=== PATIENT | female | born 1935 | race Caucasian/White ===

== ENCOUNTER → 2017-06-08 | Outpatient (CLI) | payer OTHER ==
[~2017-06-08] MED LIST: CHOL100010 PO; MULT-513 PO; NAPR220T PO; OXYB10TA PO; OXYB5TAB21 PO
--- NOTE | 2017-06-11 08:13 | DIAGNOSTIC IMAGING REPORT ---
L-SPINE MIN 4 VIEWS ROUTINE CLINICAL HISTORY: ARTHRITIS//LOW BACK PAIN COMPARISON STUDY: No previous studies for comparison. FINDINGS: The bones are osteopenic. There is a thoracolumbar scoliosis. There is no pathologic bowel dilatation. There is scattered stool throughout the colon. There are multilevel degenerative changes present. No acute fractures are visualized. There is a grade 1 spondylolisthesis of L3 on L4. IMPRESSION: 1. Scoliosis 2. Osteopenia 3. Multilevel degenerative change 4. No acute fractures Electronically signed by: Igor Cm M.D. 06/11/2017 8:12 AM Dictated Date/Time: 06/11/2017 8:10 AM
== END | disposition home or self-care (01) ==
LOC: C.RADPV 15:09
PROVIDERS: ATTEND Neuromusculoskeletal Medicine & OMM
DX: M19.90 Unspecified osteoarthritis, unspecified site (principal); M54.5 Low back pain; M41.9 Scoliosis, unspecified

== ENCOUNTER → 2017-07-05 | Outpatient (CLI) | payer OTHER | END | disposition home or self-care (01) | LOC: C.MAMM 11:00 | PROVIDERS: ATTEND Neuromusculoskeletal Medicine & OMM | DX: M85.832 Other specified disorders of bone density and structure, left forearm (principal); M85.851 Other specified disorders of bone density and structure, right thigh; M85.852 Other specified disorders of bone density and structure, left thigh ==

== ENCOUNTER → 2017-07-26 | Outpatient (CLI) | payer OTHER ==
[2017-07-26 13:01] LABS: ALT/SGPT 16 U/L (12-78); AST/SGOT 14 U/L (15-37); BLOOD UREA NITROGEN 13 mg/dl (7-18); BUN/CREATININE RATIO 21.7 (10-20); CALCIUM 8.2 mg/dl (8.5-10.1); CARBON DIOXIDE 27 mmol/L (21-32); CHLORIDE 106 mmol/L (98-107); CREATININE 0.62 mg/dl (0.60-1.20); GLUCOSE 84 mg/dl (70-99); POTASSIUM 3.6 mmol/L (3.5-5.1); SODIUM 141 mmol/L (136-145)
[2017-07-26 13:09] LABS: ALB/GLOB RATIO 1.1 (0.9-2); ALKALINE PHOSPHATASE 67 U/L (45-117)
== END | disposition home or self-care (01) ==
LOC: C.LAB1850 11:09
PROVIDERS: ATTEND Psychiatry & Neurology Psychiatry
DX: F31.81 Bipolar II disorder (principal)

== ENCOUNTER → 2017-11-06 | Day surgery (SDC) | payer OTHER ==
[2017-09-26 08:07] VITALS: Ht 165.1 cm; Wt 75.9 kg
[~2017-11-06] VITALS: Ht 165.1 cm; Wt 75.9 kg
[~2017-11-06] MED LIST changes: +500ML BSS 0.3ML EPI 1:1000PF IRRIG ONE; +ACETAMINOPHEN 325 MG TAB PO PRN; +AMVISC PLUS 0.8ML SYRINGE INT OCU ONE; +ATROPINE SULFATE 0.1 MG/ML 5ML SYR IV PRN; +BSS FLUSH ONE; -CHOL100010 PO; +DIVA1CAP PO; +EpHEDrine SULFATE INJ 50 MG/ML AMP IV PRN; +EpINEphrine INJ 1MG/ML AMP 1 MG/ML AMP ONE; +LACTATED RINGER'S 1000ML 500 ML IV SCH; +LIDOCAINE 3.5% OPH GEL PER APPLICATION CHARGE ONE; +LIDOCAINE HCL 1% MPF 2 ML VIAL ONE; +MAGNESIUM PO; +MIDAZOLAM HCL 1 MG/ML 2ML VIAL ONE; -NAPR220T PO; +OCUCOAT 1 ML SOLN IO ONE; -OXYB10TA PO; +PARO20TA3 PO; +POVIDONE-IODINE OP SOLN 30 ML BTL ONE; +PROPARACAINE 0.5% OP SOLN PER DROP CHARGE OPL SCH; +TOBRAMYCIN/DEXAMETHASONE OPH OINT PER APPLN CHARGE ONE; +VALE500C2 PO; +VITAMIN B12 PO; +VITAMIN D3 PO
[2017-11-06] MEDS: PHENYLEPHRINE HCL 2.5% OP SOLN PER DROP CHARGE OPL SCH ×2 (11:25→11:31)
[2017-11-06] MEDS: TROPICAMIDE 1% OP SOLN PER DROP CHARGE OPL SCH ×2 (11:26→11:33)
[2017-11-06] MEDS: CYCLOPENTOLATE HCL 1% OP SOLN PER DROP CHARGE OPL SCH ×2 (11:27→11:34)
[2017-11-06] MEDS: KETOROLAC 0.5% OP SOLN PER DROP CHARGE OPL SCH ×2 (11:28→11:36)
[2017-11-06] MEDS: GATIFLOXACIN OP SOLN PER DROP CHARGE OPL SCH ×2 (11:29→11:43)
--- NOTE | 2017-11-06 12:20 | History & Physical Bridge - SC ---
H&P Re-Evaluation Bridge Note: I have examined the patient, reviewed the History & Physical and in the interval since the performance of the History & Physical I have noted the following changes of clinical significance: No changes noted
--- NOTE | 2017-11-06 12:50 | [facility] Operative Report ---
Operative Report Date of Service Nov 06, 2017. Operative Report 1. PREOPERATIVE DIAGNOSIS: Cataract of the right eye. 2. POSTOPERATIVE DIAGNOSIS: Same. 3. PROCEDURE: Phacoemulsification with intraocular lens implantation of the right eye. SURGEON: Dr. Yomi Sen. ANESTHESIA: Topical Lidocaine gel, 1% Non- Preserved intracameral Lidocaine, and monitored intravenous sedation. INDICATIONS FOR THE PROCEDURE: The patient is a 82 - year-old female with a history of cataract of the right eye causing significant visual impairment. The details of the proposed procedure were explained to the patient who asked appropriate questions and following discussion of all risks, benefits and alternatives agreed to have the procedure done. 4. OPERATION AND FINDINGS: DESCRIPTION OF PROCEDURE: After informed consent was obtained, the patient was brought to the Operating Room at the [facility]. The patient was placed in a supine position and then the right eye was prepped and draped in the usual sterile fashion for intraocular surgery. A drop of topical Lidocaine gel was placed in the operative eye. A wire lid speculum was then placed in the fornices. A corneal paracentesis was then created temporally. The Non-Preserved Lidocaine was then instilled into the anterior chamber. The anterior chamber was then pressurized with viscoelastic. A 2.0 mm clear corneal incision was then created temporally. A cystotome was inserted into the anterior chamber and used to create a tear in the anterior lens capsule. This capsular tear was then used to create a small flap and the flap was dragged in a counterclockwise direction in order to create a continuous curvilinear capsulorrhexis. Hydrodissection was accomplished with balanced salt solution. Phacoemulsification of the lens nucleus was then performed in a standard [id number] technique. The phaco time was 26 seconds with an average power of 15 %. The remaining cortical material was removed using irrigation aspiration. The capsular bag was then filled with viscoelastic. A [employer]ch [employer] Lomb MI60L +22.0 diopters lens was then loaded into the injector and injected into the capsular bag. The remaining viscoelastic was removed with the irrigation aspiration handpiece. The wound was hydrated and then checked and found to be watertight. The intraocular pressure was checked and found to be adequate. The wire lid speculum was removed and the patient's face was cleaned and dried. TobraDex ointment was placed in the inferior fornix. The patient was discharged to the Recovery Room having tolerated the procedure well. There were no complications. The patient will be seen tomorrow in the office for follow-up. I attest to the content of the Intraoperative Record and any orders documented therein. Any exceptions are noted below.
--- NOTE | 2017-11-06 12:51 | Discharge Instructions-SurgCtr ---
Discharge Instructions Date of Service Nov 06, 2017. Visit Reason for Visit: Cataract Right Eye Discharge Discharge Diagnosis / Problem: cataract Discharge Goals Goal(s): Improve function Activity Recommendations Activity Limitations: per Instructions/Follow-up section Anesthesia . Post Anesthesia Instructions: If you have had General Anesthesia or IV Sedation: * Do not drive today. * Resume driving when surgeon permits. * Do not make important decisions or sign legal documents today. * Call surgeon for: 1. Temperature elevations greater than 101 degrees F. 2. Uncontrollable pain. 3. Excessive bleeding. 4. Persistent nausea and vomiting. 5. Medication intolerance (nausea, vomiting or rash). * For nausea and vomiting use only clear liquids such as: tea, soda, bouillon until nausea subsides, then gradually increase diet as tolerated. * If you have any concerns or questions, call your surgeon's office. If physician is unavailable and it is an emergency, call 911 or go to the nearest emergency room. . Diet Recommendations Home Diet: resume previous diet Procedures Procedures Performed: Right Cataract Phacoemulsification With Intraocular Lens Implant Pending Studies Studies pending at discharge: no Medical Emergencies . Who to Call and When: Medical Emergencies: If at any time you feel your situation is an emergency, please call 911 immediately. . Non-Emergent Contact Non-Emergency issues call your: [employer] . . "Provider Documentation" section prepared by Yomi Sen. .
[2017-11-06 13:22] VITALS: BP 141/88; PULSE 75; O2SAT 95
--- NOTE | 2017-11-06 13:22 | Anesthesia Progress Nt - [facility] ---
Anesthesia Post Op Note Date & Time Nov 06, 2017 at 13:22 Vital Signs Pain Intensity: 0 Vital Signs Past 12 Hours Date Time Temp Pulse Resp B/P (MAP) Pulse Ox O2 Delivery O2 Flow Rate FiO2 11/06/17 12:51 36.2 65 16 136/88 (104) 94 Room Air 11/06/17 11:16 36.6 69 16 141/87 (105) 96 Room Air Notes Mental Status: alert / awake / arousable, participated in evaluation Pt Amnestic to Procedure: Yes Nausea / Vomiting: adequately controlled Pain: adequately controlled Airway Patency, RR, SpO2: stable & adequate BP & HR: stable & adequate Hydration State: stable & adequate Anesthetic Complications: no major complications apparent
== END | disposition home or self-care (01) ==
LOC: X.SURG 10:44
PROVIDERS: ATTEND Ophthalmology
DX: H26.9 Unspecified cataract (principal); I10 Essential (primary) hypertension; Z85.828 Personal history of other malignant neoplasm of skin; Z88.2 Allergy status to sulfonamides; Z90.89 Acquired absence of other organs

== ENCOUNTER 2017-11-17 03:30 | Emergency (ER) | payer OTHER ==
[~2017-11-17] VITALS: Ht 165.1 cm; Wt 73.0 kg
[~2017-11-17 03:30] MED LIST changes: -500ML BSS 0.3ML EPI 1:1000PF IRRIG ONE; -ACETAMINOPHEN 325 MG TAB PO PRN; -AMVISC PLUS 0.8ML SYRINGE INT OCU ONE; -ATROPINE SULFATE 0.1 MG/ML 5ML SYR IV PRN; -BSS FLUSH ONE; -EpHEDrine SULFATE INJ 50 MG/ML AMP IV PRN; -EpINEphrine INJ 1MG/ML AMP 1 MG/ML AMP ONE; -LACTATED RINGER'S 1000ML 500 ML IV SCH; -LIDOCAINE 3.5% OPH GEL PER APPLICATION CHARGE ONE; -LIDOCAINE HCL 1% MPF 2 ML VIAL ONE; -MIDAZOLAM HCL 1 MG/ML 2ML VIAL ONE; -OCUCOAT 1 ML SOLN IO ONE; -PARO20TA3 PO; -POVIDONE-IODINE OP SOLN 30 ML BTL ONE; -PROPARACAINE 0.5% OP SOLN PER DROP CHARGE OPL SCH; -TOBRAMYCIN/DEXAMETHASONE OPH OINT PER APPLN CHARGE ONE
[2017-11-17 03:37] VITALS: Ht 165.1 cm; Wt 73.0 kg
[2017-11-17] MEDS ORDERED: LORAZEPAM 2 MG/ML 1 ML VIAL IV STA (04:24)
--- NOTE | 2017-11-17 06:57 | DIAGNOSTIC IMAGING REPORT ---
MAXILLOFACIAL CT WITHOUT CONTRAST CLINICAL HISTORY: specifically looking at right TMJ - dislocation COMPARISON STUDY: None. TECHNIQUE: A maxillofacial CT was performed without IV contrast. Coronal and sagittal reformats were viewed. A dose lowering technique was utilized adhering to the principles of ALARA. FINDINGS: Alignment of the left temporomandibular joint is anatomic. There is anterior dislocation of the right temporomandibular joint with the right mandibular condyle located anterior to the right glenoid fossa. No associated fracture is present. There is an 8 mm subchondral cyst within the right mandibular condyle with chronic deformity of the mandibular condyle. No facial fracture is identified. Orbits are unremarkable. There is mild mucosal thickening of the sinuses. Mastoid air cells are clear. IMPRESSION: 1. Right temporomandibular joint dislocation with right mandibular condyle located anterior to the glenoid fossa. Subchondral cystic change and chronic deformity of the right mandibular condyle suggests arthritis. No associated fracture. 2. Anatomic alignment of left temporomandibular joint. Electronically signed by: Bismark Quinn M.D. 11/17/2017 6:56 AM Dictated Date/Time: 11/17/2017 6:50 AM
[2017-11-17 07:45] VITALS: BP 145/93; PULSE 74; O2SAT 94
--- NOTE | 2017-11-17 09:08 | EMERGENCY ROOM VISIT NOTE ---
History Report prepared by Brian: Alisson Abdalla Under the Supervision of: Dr. Renetta Rubio D.O. First contact with patient: 04:09 Chief Complaint: FACIAL PAIN/INJURY Stated Complaint: JAW OUT OF PLACE CAN'T SPEAK History of Present Illness The patient is an 82 year old female who presents to the Emergency Room with complaints of an episode of facial pain starting prior to arrival. The patient states that she woke up out of sleep with both sides of her jaw out of place. The patient's son states that he woke her up and he thought at first she was having a stroke. She denies this ever happening before. She notes that she has TMJ. She states that the last time she ate was 8 hours ago. She currently rates her pain as a 10/10 in severity. She believes that she was able to get the left side back in place but remains dislocated on the right. She has no history of previous TMJ dislocation. Source of History: patient, family Onset: piror to arrival Position: other (face) Symptom Intensity: 10/10 Quality: other (dislocated) Timing: other (episode) Review of Systems See HPI for pertinent positives & negatives. A total of 10 systems reviewed and were otherwise negative. Past Medical & Surgical Medical Problems: (1) Acid reflux disease (2) No Known Active Medical Problems Family History Cancer Diabetes mellitus Hypertension Social History Smoking Status: Never Smoker Alcohol Use: none Marital Status: Housing Status: lives with family Occupation Status: employed Current/Historical Medications Scheduled Divalproex Sodium (Divalproex Sodium), 1 DOSE PO BID Multivitamins/Minerals (Mvi With Minerals), 1 TAB PO QAM Valerian (Valeriana Officinali (Valerian Root), 1 CAP PO HS [Magnesium], 1 TAB PO QAM [Vitamin B12], 1 TAB PO QAM [Vitamin D3], 1 TAB PO QAM Scheduled PRN Oxybutynin Chloride (Ditropan Xl), 1 TAB PO TID PRN for PRN Allergies Coded Allergies: Sulfa Antibiotics (Verified Allergy, Unknown, told so many years ago, ? remember, 11/14/17) Physical Exam Vital Signs Date Time Temp Pulse Resp B/P (MAP) Pulse Ox O2 Delivery O2 Flow Rate FiO2 11/17/17 07:45 74 18 145/93 94 Room Air 11/17/17 06:25 78 20 164/97 98 Room Air 11/17/17 05:06 66 20 155/88 96 Room Air 11/17/17 03:37 81 26 197/93 98 Room Air Physical Exam HEENT: Right TMJ is dislocated. Medical Decision & Procedures ER Provider Diagnostic Interpretation: Radiology results as stated below per my review and the radiologist's interpretation: MAXILLOFACIAL CT WITHOUT CONTRAST CLINICAL HISTORY: specifically looking at right TMJ - dislocation COMPARISON STUDY: None. TECHNIQUE: A maxillofacial CT was performed without IV contrast. Coronal and sagittal reformats were viewed. A dose lowering technique was utilized adhering to the principles of ALARA. FINDINGS: Alignment of the left temporomandibular joint is anatomic. There is anterior dislocation of the right temporomandibular joint with the right mandibular condyle located anterior to the right glenoid fossa. No associated fracture is present. There is an 8 mm subchondral cyst within the right mandibular condyle with chronic deformity of the mandibular condyle. No facial fracture is identified. Orbits are unremarkable. There is mild mucosal thickening of the sinuses. Mastoid air cells are clear. IMPRESSION: 1. Right temporomandibular joint dislocation with right mandibular condyle located anterior to the glenoid fossa. Subchondral cystic change and chronic deformity of the right mandibular condyle suggests arthritis. No associated fracture. 2. Anatomic alignment of left temporomandibular joint. Electronically signed by: Bismark Quinn M.D. 11/17/2017 6:56 AM Dictated Date/Time: 11/17/2017 6:50 AM Medications Administered Medications (Trade) Dose Ordered Sig/Gordon Route Start Time Stop Time Status Last Admin Dose Admin Lorazepam (Ativan Inj) 1 mg NOW STAT IV 11/17/17 04:24 11/17/17 04:25 DC 11/17/17 04:35 1 MG Procedure TMJ Dislocation Reduction Indication: Right TMJ dislocation Verbal consent obtained. A time out was taken. . The right TMJ dislocation was reduced by placing the patient in the seated position and applying gentle downward inline traction on the right mandible, with posterior traction. After multiple attempts, This resulted in a reduction without complication. The patient had significant pain relief and tolerated the procedure well. 0424: Ordered Ativan Inj 1 mg IV. ED Course 0409: The patient was evaluated in room B9. A complete history and physical exam was performed. I attempted reduction of the right TMJ dislocation but was unsuccessful. It seemed that the head of the mandible would get hung up on the condyle. 0424: Ordered Ativan Inj 1 mg IV. 0508: The patient is slightly improved from when I first saw her. I attempted reduction again with downward traction on the mandible and posterior Rusher on the right side but again was unsuccessful. The mandible would not stay in a reduced position. 0532: The patient will go for CT scan of the TMJ. 0707: Upon reevaluation I reviewed the results of the CT scan with the patient and her son. I attempted multiple different techniques to reduce the TMJ and finally was successful. I was able to get her jaw back into place. She feels much better. I discussed instructions for her to follow over the next 3 days. She verbalized agreement of the treatment plan. The patient was discharged home. Medical Decision The patient is an 82 year old female who presents to the Emergency Room with complaints of an episode of facial pain starting prior to arrival. Differential diagnoses include mandibular fracture, TMJ dislocation. The patient had a bilateral TMJ dislocation. She was able to reduce the left TMJ on her own and I was able to reduce the right. She is much more comfortable with this time. She was encouraged to take a liquid or very soft diet over the next 3 days. She should return here to the emergency department for any further dislocation. Medication Reconcilliation Current Medication List: was personally reviewed by me Blood Pressure Screening Patient's blood pressure: Elevated blood pressure Blood pressure disposition: Elevated BP felt to be situational Impression Primary Impression: TMJ dislocation Scribe Attestation The scribe's documentation has been prepared under my direction and personally reviewed by me in its entirety. I confirm that the note above accurately reflects all work, treatment, procedures, and medical decision making performed by me. Departure Information Dispostion Home / Self-Care Referrals Vincenzo Barba D.O. (PCP) Forms HOME CARE DOCUMENTATION FORM, IMPORTANT VISIT INFORMATION Patient Instructions My [facility] Additional Instructions Rest. Soft or liquid diet for next 3 days tylenol for pain. Return to the ED if it dislocates again. Problem Qualifiers Primary Impression: TMJ dislocation Encounter type: initial encounter Qualified Codes: S03.00XA - Dislocation of jaw, unspecified side, initial encounter
== END 2017-11-17 08:14 | disposition home or self-care (01) ==
LOC: C.EDB 03:31
DX: S03.00XA Dislocation of jaw, unspecified side, initial encounter (principal); X58.XXXA Exposure to other specified factors, initial encounter; K21.9 Gastro-esophageal reflux disease without esophagitis; Z80.9 Family history of malignant neoplasm, unspecified; Z83.3 Family history of diabetes mellitus; Z82.49 Family history of ischemic heart disease and other diseases of the circulatory system; Z79.899 Other long term (current) drug therapy

== ENCOUNTER 2017-11-22 14:42 | Emergency (ER) | payer OTHER ==
[~2017-11-22] VITALS: Ht 165.1 cm; Wt 70.8 kg
[2017-11-22 14:49] VITALS: TEMP 36.8; Ht 165.1 cm; Wt 70.8 kg
--- NOTE | 2017-11-22 15:38 | EMERGENCY ROOM VISIT NOTE ---
History Report prepared by Saryibdane: Sumanth Wong Under the Supervision of: Dr. Wellington Burt D.O. First contact with patient: 15:19 Chief Complaint: NECK PAIN Stated Complaint: NECK PAIN History of Present Illness The patient is a 82 year old female who presents to the Emergency Room with complaints of resolved right sided neck pain that occurred today. She reports that she has had a history of neck pain for a couple of years ago that is typically resolved when she holds her neck and massages the area. The patient states that the pain returns every 3-4 weeks. She states that she has not been referred to a specialist due to her pain. The patient states that her pain returned today, but she states that she was not able to relieve her pain with massaging. She denies chest pain, shortness of breath, rashes, leg pain or swelling, nausea, vomiting, new medications. The patient states that she was recently in the ED five days ago due to TMJ. Source of History: patient Onset: today Position: neck (right) Timing: resolved Modifying Factors (Relieving): other (massaging) Associated Symptoms: No chest pain, No SOB, No nausea, No vomiting, No rash Review of Systems See HPI for pertinent positives & negatives. A total of 10 systems reviewed and were otherwise negative. Past Medical & Surgical Medical Problems: (1) Acid reflux disease (2) No Known Active Medical Problems Family History Cancer Diabetes mellitus Hypertension Social History Smoking Status: Never Smoker Alcohol Use: none Marital Status: Housing Status: lives with family Occupation Status: employed Current/Historical Medications Scheduled Calcium/Vitamin D (Os-Chance 500 Plus D), 1 TAB PO DAILY Divalproex Sodium (Divalproex Sodium), 125 MG PO BID Multivitamins/Minerals (Mvi With Minerals), 1 TAB PO QAM Valerian (Valeriana Officinali (Valerian Root), 500 MG PO HS [Magnesium], 1 TAB PO QAM [Vitamin B12], 1 TAB PO QAM [Vitamin D3], 1 TAB PO QAM Scheduled PRN Oxybutynin Chloride (Ditropan Xl), 5 MG PO TID PRN for PRN Allergies Coded Allergies: Sulfa Antibiotics (Verified Allergy, Unknown, told so many years ago, ? remember, 11/22/17) Physical Exam Vital Signs Date Time Temp Pulse Resp B/P (MAP) Pulse Ox O2 Delivery O2 Flow Rate FiO2 11/22/17 17:42 85 20 159/93 95 11/22/17 17:00 95 Room Air 11/22/17 17:00 95 Room Air 11/22/17 14:49 36.8 107 20 178/111 95 Room Air Physical Exam GENERAL: Patient is awake, alert, and in no acute distress. Patient is resting comfortably and showing no signs of anxiety EYES: The conjunctivae are clear. The pupils are round and reactive. EARS, NOSE, MOUTH AND THROAT: The nose is without any evidence of any deformity. Mucous membranes are moist tongue is midline NECK: The neck is nontender and supple. RESPIRATORY: Normal respiratory effort is noted there is no evidence of wheezing rhonchi or rales CARDIOVASCULAR: Regular rate and rhythm noted there no murmurs rubs or gallops normal S1 normal S2 GASTROINTESTINAL: The abdomen is soft. Bowel sounds are present in all quadrants. Abdomen is nontender MUSCULOSKELETAL/EXTREMITIES: There is no evidence of gross deformity full range of motion is noted in the hips and shoulders SKIN: Traced pedal edema bilaterally. NEUROLOGIC: Patient is awake alert and oriented x3 strength is symmetric patellar reflexes are 2+ bilaterally Medical Decision & Procedures ER Provider Diagnostic Interpretation: X-ray results as stated below per interpretation by me and the radiologist. CHEST ONE VIEW PORTABLE HISTORY: 82 years-old Female CHEST PAIN acute atypical chest pain COMPARISON: Chest radiographs 03/20/2016 TECHNIQUE: Portable AP view of the chest FINDINGS: Cardiac silhouette is mildly enlarged. Atherosclerosis of the aorta. Minimal linear subsegmental left basilar atelectasis without pneumothorax, pleural effusion, focal airspace consolidation or overt pulmonary edema. The bones of the chest appear grossly intact. Degenerative changes are noted within the shoulders and spine. IMPRESSION: No acute process. The above report was generated using voice recognition software. It may contain grammatical, syntax or spelling errors. Electronically signed by: Jarvis Puckett M.D. 11/22/2017 3:51 PM Laboratory Results 11/22/17 16:20 Red Blood Count 4.37, Mean Corpuscular Volume 90.8, Mean Corpuscular Hemoglobin 31.1, Mean Corpuscular Hemoglobin Concent 34.3, Mean Platelet Volume 10.7, Neutrophils (%) (Auto) 56.0, Lymphocytes (%) (Auto) 32.2, Monocytes (%) (Auto) 10.1, Eosinophils (%) (Auto) 1.0, Basophils (%) (Auto) 0.5, Neutrophils # (Auto ) 3.37, Lymphocytes # (Auto) 1.94, Monocytes # (Auto) 0.61, Eosinophils # (Auto ) 0.06, Basophils # (Auto) 0.03 11/22/17 16:20 Test 11/22/17 16:20 White Blood Count 6.02 K/uL (4.8-10.8) Red Blood Count 4.37 M/uL (4.2-5.4) Hemoglobin 13.6 g/dL (12.0-16.0) Hematocrit 39.7 % (37-47) Mean Corpuscular Volume 90.8 fL (80-100) Mean Corpuscular Hemoglobin 31.1 pg (25-34) Mean Corpuscular Hemoglobin Concent 34.3 g/dl (32-36) Platelet Count 166 K/uL (130-400) Mean Platelet Volume 10.7 fL (7.4-10.4) Neutrophils (%) (Auto) 56.0 % Lymphocytes (%) (Auto) 32.2 % Monocytes (%) (Auto) 10.1 % Eosinophils (%) (Auto) 1.0 % Basophils (%) (Auto) 0.5 % Neutrophils # (Auto) 3.37 K/uL (1.4-6.5) Lymphocytes # (Auto) 1.94 K/uL (1.2-3.4) Monocytes # (Auto) 0.61 K/uL (0.11-0.59) Eosinophils # (Auto) 0.06 K/uL (0-0.5) Basophils # (Auto) 0.03 K/uL (0-0.2) RDW Standard Deviation 47.6 fL (36.4-46.3) RDW Coefficient of Variation 14.4 % (11.5-14.5) Immature Granulocyte % (Auto) 0.2 % Immature Granulocyte # (Auto) 0.01 K/uL (0.00-0.02) Erythrocyte Sedimentation Rate 7 mm/hr (0-21) Anion Gap 8.0 mmol/L (3-11) Est Creatinine Clear Calc Drug Dose 61.2 ml/min Estimated GFR () 93.5 Estimated GFR (Non- 80.7 BUN/Creatinine Ratio 21.4 (10-20) Calcium Level 8.8 mg/dl (8.5-10.1) Total Bilirubin 0.5 mg/dl (0.2-1) Direct Bilirubin 0.1 mg/dl (0-0.2) Aspartate Amino Transf (AST/SGOT) 34 U/L (15-37) Alanine Aminotransferase (ALT/SGPT) 56 U/L (12-78) Alkaline Phosphatase 39 U/L (45-117) Total Creatine Kinase 86 U/L (26-192) Creatine Kinase MB 1.7 ng/ml (0.5-3.6) Creatine Kinase MB Ratio 2.0 (0-3.0) Troponin I < 0.015 ng/ml (0-0.045) C-Reactive Protein < 0.29 mg/dl (0-0.29) Total Protein 7.1 gm/dl (6.4-8.2) Albumin 3.7 gm/dl (3.4-5.0) Lipase 85 U/L (73-393) Laboratory results per my review. ECG Indication: other (neck pain) Rate (beats per minute): 70 Rhythm: normal sinus Findings: no ectopy, other (No acute ST abnormalities) Comparison ECG Date: 03/20/16 Change: no significant change Change: Patient's EKG was interpreted by me. ED Course 1525: The patient was evaluated in room B06. A complete history and physical examination were performed. 1743: Upon reevaluation, the patient is resting comfortably. I discussed the results and treatment plan with the patient. She verbalized agreement of the treatment plan. The patient was discharged home. Medical Decision Prior records/ancillary studies reviewed. Triage Nursing notes reviewed. The patient's history was concerning for chest pain. Differential diagnosis: Etiologies such as cardiac ischemia, aortic dissection, pulmonary embolism, pneumonia, pneumothorax, musculoskeletal, infections, pericarditis, myocarditis , esophageal rupture, gastrointestinal, as well as others were entertained. The patient is an 82-year-old female who presented to the emergency department for an evaluation of neck pain. The patient has had similar symptoms in the past for approximately 1 year. The patient states that she has no pain at this time. I discussed the patient's laboratory and radiographic studies with her. She was concerned that there could be something else going on. At this time I feel this could be consistent with occipital neuralgia. For this reason I recommended that she follow-up with her family doctor and discuss the possibility that she may require a referral to a face painter for injections. Otherwise she was encouraged to return the emergency department immediately if symptoms change worsening of the need arises. Medication Reconcilliation Current Medication List: was personally reviewed by me Blood Pressure Screening Patient's blood pressure: Elevated blood pressure Blood pressure disposition: Elevated BP felt to be situational Impression Primary Impression: Cervical strain Additional Impression: Occipital neuralgia Scribe Attestation The scribe's documentation has been prepared under my direction and personally reviewed by me in its entirety. I confirm that the note above accurately reflects all work, treatment, procedures, and medical decision making performed by me. Departure Information Dispostion Home / Self-Care Referrals Vincenzo Barba D.O. (PCP) Patient Instructions ED Neck Back Pain General, [facility] Additional Instructions Call your family doctor to call your family doctor to schedule a follow-up appointment. Rest and avoid any strenuous activity. Discussed the possibility with your family doctor that he may require a referral to a pain clinic for injections if symptoms do not improve. Return to the emergency department immediately if symptoms change worsening the need arises. Problem Qualifiers Primary Impression: Cervical strain Encounter type: subsequent encounter Qualified Codes: S16.1XXD - Strain of muscle, fascia and tendon at neck level, subsequent encounter Additional Impression: Occipital neuralgia Laterality: bilateral Qualified Codes: M54.81 - Occipital neuralgia
[2017-11-22] MEDS ORDERED: CALC500C70 PO (15:39)
--- NOTE | 2017-11-22 15:52 | DIAGNOSTIC IMAGING REPORT ---
CHEST ONE VIEW PORTABLE HISTORY: 82 years-old Female CHEST PAIN acute atypical chest pain COMPARISON: Chest radiographs 03/20/2016 TECHNIQUE: Portable AP view of the chest FINDINGS: Cardiac silhouette is mildly enlarged. Atherosclerosis of the aorta. Minimal linear subsegmental left basilar atelectasis without pneumothorax, pleural effusion, focal airspace consolidation or overt pulmonary edema. The bones of the chest appear grossly intact. Degenerative changes are noted within the shoulders and spine. IMPRESSION: No acute process. The above report was generated using voice recognition software. It may contain grammatical, syntax or spelling errors. Electronically signed by: Jarvis Puckett M.D. 11/22/2017 3:51 PM Dictated Date/Time: 11/22/2017 3:50 PM
[2017-11-22 16:34] LABS: BASO % 0.5 %; BASO ABS # 0.03 K/uL (0-0.2); EOS ABS # 0.06 K/uL (0-0.5); HEMATOCRIT 39.7 % (37-47); HEMOGLOBIN 13.6 g/dL (12.0-16.0); IG# 0.01 K/uL (0.00-0.02); LYMPH % 32.2 %; LYMPH ABS # 1.94 K/uL (1.2-3.4); MEAN CELL VOLUME 90.8 fL (80-100); MEAN CORPUSCULAR HEMOGLOBIN 31.1 pg (25-34); MEAN CORPUSCULAR HGB CONC 34.3 g/dl (32-36); MEAN PLATELET VOLUME 10.7 fL (7.4-10.4); MONO % 10.1 %; MONO ABS # 0.61 K/uL (0.11-0.59); NEUT ABS # 3.37 K/uL (1.4-6.5); PLATELET COUNT 166 K/uL (130-400); RED CELL DISTRIBUTION WIDTH CV 14.4 % (11.5-14.5); RED CELL DISTRIBUTION WIDTH SD 47.6 fL (36.4-46.3); WHITE BLOOD COUNT 6.02 K/uL (4.8-10.8)
[2017-11-22 17:00] VITALS: O2SAT 95
[2017-11-22 17:11] LABS: ALBUMIN 3.7 gm/dl (3.4-5.0); ALT/SGPT 56 U/L (12-78); AST/SGOT 34 U/L (15-37); BLOOD UREA NITROGEN 15 mg/dl (7-18); CALCIUM 8.8 mg/dl (8.5-10.1); CARBON DIOXIDE 25 mmol/L (21-32); GLUCOSE 85 mg/dl (70-99); LIPASE 85 U/L (73-393); POTASSIUM 3.8 mmol/L (3.5-5.1); SODIUM 136 mmol/L (136-145)
[2017-11-22 17:14] LABS: ALKALINE PHOSPHATASE 39 U/L (45-117); CKMB 1.7 ng/ml (0.5-3.6); TOTAL PROTEIN 7.1 gm/dl (6.4-8.2)
[2017-11-22 17:42] VITALS: BP 159/93; PULSE 85; O2SAT 95
== END 2017-11-22 17:43 | disposition home or self-care (01) ==
LOC: C.EDB 14:46
DX: S16.1XXA Strain of muscle, fascia and tendon at neck level, initial encounter (principal); X58.XXXA Exposure to other specified factors, initial encounter; M54.81 Occipital neuralgia; K21.9 Gastro-esophageal reflux disease without esophagitis; Z79.899 Other long term (current) drug therapy; Z80.9 Family history of malignant neoplasm, unspecified; Z83.3 Family history of diabetes mellitus; Z82.49 Family history of ischemic heart disease and other diseases of the circulatory system

== ENCOUNTER → 2017-11-27 | Day surgery (SDC) | payer OTHER ==
[2017-11-14 07:34] VITALS: Ht 165.1 cm; Wt 75.9 kg
[~2017-11-27] VITALS: Ht 165.1 cm; Wt 75.9 kg
[~2017-11-27] MED LIST changes: +500ML BSS 0.3ML EPI 1:1000PF IRRIG ONE; +ACETAMINOPHEN 325 MG TAB PO PRN; +AMVISC PLUS 0.8ML SYRINGE INT OCU ONE; +ATROPINE SULFATE 0.1 MG/ML 5ML SYR IV PRN; +BSS FLUSH ONE; +CALC500C70 PO; +CYCLOPENTOLATE HCL 1% OP SOLN PER DROP CHARGE OPL SCH; -DIVA1CAP PO; +DIVA1CAP5 PO; +EpHEDrine SULFATE INJ 50 MG/ML AMP IV PRN; +EpINEphrine INJ 1MG/ML AMP 1 MG/ML AMP ONE; +GATIFLOXACIN OP SOLN PER DROP CHARGE OPL SCH; +KETOROLAC 0.5% OP SOLN PER DROP CHARGE OPL SCH; +LACTATED RINGER'S 1000ML 500 ML IV SCH; +LIDOCAINE 3.5% OPH GEL PER APPLICATION CHARGE ONE; +LIDOCAINE HCL 1% MPF 2 ML VIAL ONE; +MIDAZOLAM HCL 1 MG/ML 2ML VIAL ONE; +ONDANSETRON INJ 2 MG/ML 2 ML VIAL IV PRN; +PHENYLEPHRINE HCL 10% OP SOLN PER DROP CHARGE OPL SCH; +PHENYLEPHRINE HCL 2.5% OP SOLN PER DROP CHARGE OPL SCH; +POVIDONE-IODINE OP SOLN 30 ML BTL ONE; +PROPARACAINE 0.5% OP SOLN PER DROP CHARGE OPL SCH; +TOBRAMYCIN/DEXAMETHASONE OPH OINT PER APPLN CHARGE ONE; +TROPICAMIDE 1% OP SOLN PER DROP CHARGE OPL SCH
--- NOTE | 2017-11-27 09:35 | History & Physical Bridge - SC ---
H&P Re-Evaluation Bridge Note: I have examined the patient, reviewed the History & Physical and in the interval since the performance of the History & Physical I have noted the following changes of clinical significance Diagnosis: Left Cataract Procedure: Left Cataract Removal with Lens Implant : No changes noted
--- NOTE | 2017-11-27 10:08 | [facility] Operative Report ---
Operative Report Date of Service Nov 27, 2017. Operative Report 1. PREOPERATIVE DIAGNOSIS: Cataract of the left eye. 2. POSTOPERATIVE DIAGNOSIS: Same. 3. PROCEDURE: Phacoemulsification with intraocular lens implantation of the left eye. SURGEON: Dr. Yomi Sen. ANESTHESIA: Topical Lidocaine gel, 1% Non- Preserved intracameral Lidocaine, and monitored intravenous sedation. INDICATIONS FOR THE PROCEDURE: The patient is a 82 - year-old female with a history of cataract of the left eye causing significant visual impairment. The details of the proposed procedure were explained to the patient who asked appropriate questions and following discussion of all risks, benefits and alternatives agreed to have the procedure done. 4. OPERATION AND FINDINGS: DESCRIPTION OF PROCEDURE: After informed consent was obtained, the patient was brought to the Operating Room at the [facility]. The patient was placed in a supine position and then the left eye was prepped and draped in the usual sterile fashion for intraocular surgery. A drop of topical Lidocaine gel was placed in the operative eye. A wire lid speculum was then placed in the fornices. A corneal paracentesis was then created temporally. The Non-Preserved Lidocaine was then instilled into the anterior chamber. The anterior chamber was then pressurized with viscoelastic. A 2.0 mm clear corneal incision was then created temporally. A cystotome was inserted into the anterior chamber and used to create a tear in the anterior lens capsule. This capsular tear was then used to create a small flap and the flap was dragged in a counterclockwise direction in order to create a continuous curvilinear capsulorrhexis. Hydrodissection was accomplished with balanced salt solution. Phacoemulsification of the lens nucleus was then performed in a standard [id number] technique. The phaco time was 19 seconds with an average power of 10 %. The remaining cortical material was removed using irrigation aspiration. The capsular bag was then filled with viscoelastic. A [employer] MI60L +22.0 diopters lens was then loaded into the injector and injected into the capsular bag. The remaining viscoelastic was removed with the irrigation aspiration handpiece. The wound was hydrated and then checked and found to be watertight. The intraocular pressure was checked and found to be adequate. The wire lid speculum was removed and the patient's face was cleaned and dried. TobraDex ointment was placed in the inferior fornix. The patient was discharged to the Recovery Room having tolerated the procedure well. There were no complications. The patient will be seen tomorrow in the office for follow-up. I attest to the content of the Intraoperative Record and any orders documented therein. Any exceptions are noted below.
--- NOTE | 2017-11-27 10:08 | Discharge Instructions-SurgCtr ---
Discharge Instructions Date of Service Nov 27, 2017. Visit Reason for Visit: Cataract Left Eye Discharge Discharge Diagnosis / Problem: cataract Discharge Goals Goal(s): Improve function Activity Recommendations Activity Limitations: per Instructions/Follow-up section Anesthesia . Post Anesthesia Instructions: If you have had General Anesthesia or IV Sedation: * Do not drive today. * Resume driving when surgeon permits. * Do not make important decisions or sign legal documents today. * Call surgeon for: 1. Temperature elevations greater than 101 degrees F. 2. Uncontrollable pain. 3. Excessive bleeding. 4. Persistent nausea and vomiting. 5. Medication intolerance (nausea, vomiting or rash). * For nausea and vomiting use only clear liquids such as: tea, soda, bouillon until nausea subsides, then gradually increase diet as tolerated. * If you have any concerns or questions, call your surgeon's office. If physician is unavailable and it is an emergency, call 911 or go to the nearest emergency room. . Diet Recommendations Home Diet: resume previous diet Procedures Procedures Performed: Left Cataract Phacoemulsification With Intraocular Lens Implant Pending Studies Studies pending at discharge: no Medical Emergencies . Who to Call and When: Medical Emergencies: If at any time you feel your situation is an emergency, please call 911 immediately. . Non-Emergent Contact Non-Emergency issues call your: Sifter Operator . . "Provider Documentation" section prepared by Yomi Sen. .
[2017-11-27 10:10] VITALS: TEMP 36.9
[2017-11-27 10:36] VITALS: BP 143/80; PULSE 68; O2SAT 94
--- NOTE | 2017-11-27 10:40 | Anesthesia Progress Nt - [facility] ---
Anesthesia Post Op Note Date & Time Nov 27, 2017 at 10:40 Vital Signs Pain Intensity: 0 Vital Signs Past 12 Hours Date Time Temp Pulse Resp B/P (MAP) Pulse Ox O2 Delivery O2 Flow Rate FiO2 11/27/17 10:10 36.9 64 16 127/68 (87) 95 Room Air 11/27/17 09:09 36.6 80 16 146/89 (108) 95 Room Air Notes Mental Status: alert / awake / arousable, participated in evaluation Pt Amnestic to Procedure: Yes Nausea / Vomiting: adequately controlled Pain: adequately controlled Airway Patency, RR, SpO2: stable & adequate BP & HR: stable & adequate Hydration State: stable & adequate Anesthetic Complications: no major complications apparent
== END | disposition home or self-care (01) ==
LOC: X.SURG 08:44
PROVIDERS: ATTEND Ophthalmology
DX: H26.9 Unspecified cataract (principal); Z88.2 Allergy status to sulfonamides; Z90.89 Acquired absence of other organs; Z85.828 Personal history of other malignant neoplasm of skin

== ENCOUNTER → 2017-11-30 | Outpatient (CLI) | payer OTHER ==
[~2017-11-30] MED LIST changes: -500ML BSS 0.3ML EPI 1:1000PF IRRIG ONE; -ACETAMINOPHEN 325 MG TAB PO PRN; -AMVISC PLUS 0.8ML SYRINGE INT OCU ONE; -ATROPINE SULFATE 0.1 MG/ML 5ML SYR IV PRN; -BSS FLUSH ONE; -CYCLOPENTOLATE HCL 1% OP SOLN PER DROP CHARGE OPL SCH; -EpHEDrine SULFATE INJ 50 MG/ML AMP IV PRN; -EpINEphrine INJ 1MG/ML AMP 1 MG/ML AMP ONE; -GATIFLOXACIN OP SOLN PER DROP CHARGE OPL SCH; -KETOROLAC 0.5% OP SOLN PER DROP CHARGE OPL SCH; -LACTATED RINGER'S 1000ML 500 ML IV SCH; -LIDOCAINE 3.5% OPH GEL PER APPLICATION CHARGE ONE; -LIDOCAINE HCL 1% MPF 2 ML VIAL ONE; -MIDAZOLAM HCL 1 MG/ML 2ML VIAL ONE; -ONDANSETRON INJ 2 MG/ML 2 ML VIAL IV PRN; -PHENYLEPHRINE HCL 10% OP SOLN PER DROP CHARGE OPL SCH; -PHENYLEPHRINE HCL 2.5% OP SOLN PER DROP CHARGE OPL SCH; -POVIDONE-IODINE OP SOLN 30 ML BTL ONE; -PROPARACAINE 0.5% OP SOLN PER DROP CHARGE OPL SCH; -TOBRAMYCIN/DEXAMETHASONE OPH OINT PER APPLN CHARGE ONE; -TROPICAMIDE 1% OP SOLN PER DROP CHARGE OPL SCH
[2017-11-30 12:48] LABS: BASO % 0.5 %; BASO ABS # 0.02 K/uL (0-0.2); EOS % 2.8 %; EOS ABS # 0.12 K/uL (0-0.5); HEMATOCRIT 42.2 % (37-47); HEMOGLOBIN 14.1 g/dL (12.0-16.0); IG# 0.02 K/uL (0.00-0.02); LYMPH % 41.9 %; LYMPH ABS # 1.81 K/uL (1.2-3.4); MEAN CELL VOLUME 92.5 fL (80-100); MEAN CORPUSCULAR HEMOGLOBIN 30.9 pg (25-34); MEAN CORPUSCULAR HGB CONC 33.4 g/dl (32-36); MEAN PLATELET VOLUME 11.9 fL (7.4-10.4); MONO % 10.9 %; MONO ABS # 0.47 K/uL (0.11-0.59); NEUT % 43.4 %; NEUT ABS # 1.88 K/uL (1.4-6.5); PLATELET COUNT 169 K/uL (130-400); RED CELL DISTRIBUTION WIDTH CV 14.9 % (11.5-14.5); RED CELL DISTRIBUTION WIDTH SD 50.7 fL (36.4-46.3); WHITE BLOOD COUNT 4.32 K/uL (4.8-10.8)
[2017-11-30 13:03] LABS: ALBUMIN 3.8 gm/dl (3.4-5.0); ALT/SGPT 49 U/L (12-78); BLOOD UREA NITROGEN 16 mg/dl (7-18); CALCIUM 8.7 mg/dl (8.5-10.1); CARBON DIOXIDE 30 mmol/L (21-32); CREATININE 0.74 mg/dl (0.60-1.20); GLUCOSE 81 mg/dl (70-99); POTASSIUM 3.6 mmol/L (3.5-5.1); SODIUM 138 mmol/L (136-145)
[2017-11-30 13:14] LABS: ALKALINE PHOSPHATASE 35 U/L (45-117); AST/SGOT 30 U/L (15-37); TOTAL PROTEIN 7.1 gm/dl (6.4-8.2)
== END | disposition home or self-care (01) ==
LOC: C.LABBFT 10:00
PROVIDERS: ATTEND Neuromusculoskeletal Medicine & OMM
DX: F32.9 Major depressive disorder, single episode, unspecified (principal); R53.83 Other fatigue

== ENCOUNTER 2019-12-02 16:10 | Inpatient (IN) ==
[2019-12-02] MEDS ORDERED: ACETAMINOPHEN 1,000 MG/100 ML VIAL IV STA (16:42)
[2019-12-02] MEDS ORDERED: ONDANSETRON INJ 2 MG/ML 2 ML VIAL IV STA ×2 (16:42→19:06)
[2019-12-02] MEDS ORDERED: SODIUM CHLORIDE 0.9% 1000ML 1,000 ML IV SCH (16:45)
[2019-12-02 17:05] LABS: Basophils # (auto) 0.01 K/uL (0-0.2); Basophils % (auto) 0.1 %; Hematocrit (blood only) 46.3 % (37-47); Hemoglobin 15.9 g/dL (12.0-16.0); Immature Granulocytes # (auto) 0.02 K/uL (0.00-0.02); Immature Granulocytes % (auto) 0.3 %; Lymphocytes # (auto) 0.75 K/uL (1.2-3.4); Mean Corpuscular Hemoglobin 31.4 pg (25-34); Mean Corpuscular Hgb Conc 34.3 g/dL (32-36); Mean Corpuscular Volume 91.5 fL (80-100); Mean Platelet Volume 10.9 fL (7.4-10.4); Monocytes # (auto) 0.22 K/uL (0.11-0.59); Monocytes % (auto) 2.9 %; Neutrophils # (auto) 6.53 K/uL (1.4-6.5); Neutrophils % (auto) 86.7 %; Platelet Count 181 K/uL (130-400); RDW Coefficient of Variation 14.2 % (11.5-14.5); RDW Standard Deviation 47.8 fL (36.4-46.3); Red Blood Count 5.06 M/uL (4.2-5.4); White Blood Count 7.53 K/uL (4.8-10.8)
--- NOTE | 2019-12-02 17:11 | XRay Report ---
XR chest 1V portable CLINICAL HISTORY: 84 years-old Female presenting with weakness. TECHNIQUE: Portable upright AP view of the chest was obtained. COMPARISON: 11/22/2017. FINDINGS: Atherosclerosis of the aortic arch. Tortuosity of the descending thoracic aorta. Cardiac silhouette t op normal in size. Mild hyperinflation. No focal opacity. No large effusion or pneumothorax. 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 Upper abdomen normal. IMPRESSION: 1. No acute cardiopulmonary disease. ACT 112: Negative or not required by law. Electronically signed by: Naga Persaud M.D. 12/02/2019 5:10 PM
--- NOTE | 2019-12-02 17:19 | Emergency Department Note ---
Entered by Jarocho Nix acting as a scribe for Jason Fang MD History of Present Illness General Chief complaint: Illness Stated complaint: DIARRHEA, VOMITING Time Seen by Provider: 12/02/19 16:36 Source: patient History of Present Illness Onset (ago): hour(s) (this morning) Location: abdomen Pain Consistency: + constant (nausea) and + intermittent (vomiting) Quality: + other (nausea and vomiting) Associated symptoms: + denies other symptoms (fevers, burning with urination, and increased frequency) The patient is an 84 y/o female who presents to the ED w/ CC of constant nausea and intermittent vomiting beginning this morning. The patient states she hernandez been having trouble with constipation recently and was evaluated by her PCP. She reports she has not able to eat or drink much for the past few days. The patient notes she thinks she ate some bad meat because she started vomiting earlier today and does not feel well. She states she has constant nausea. The patient denies fevers, burning with urination, and increased frequency. There is no abdominal pain. Home Medications Home Medications Medication Instructions Recorded Confirmed Type oxybutynin chloride 10 mg 10 mg PO QAM #90 tab 04/11/19 12/02/19 History tablet,extended release 24 hr clonazepam 0.5 mg tablet 0.5 mg PO BID tab 07/25/19 12/02/19 History clonidine HCl 0.2 mg PO HS 09/04/19 12/02/19 History divalproex 250 mg PO HS 09/04/19 12/02/19 History lidocaine [Lidoderm] 1 patch TOP DAILY PRN #15 ea 09/04/19 12/02/19 Rx alendronate 70 mg PO WK 12/02/19 12/02/19 History bupropion HCl 100 mg PO DAILY 12/02/19 12/02/19 History Allergies Allergy/AdvReac Type Severity Reaction Status Date / Time Sulfa (Sulfonamide Allergy Unknown told so Verified 12/02/19 18:19 Antibiotics) many years ago, ? remember Past Med/Surg History Medical History Anxiety Chronic neck pain Depression Dislocated mandible H/O History of skin cancer Osteoarthritis Osteoporosis Osteoporosis Overactive bladder Surgical History History of cataract surgery History of colonoscopy History of Mohs surgery for squamous cell carcinoma in situ of skin History of tonsillectomy Family History Sister Breast cancer Denies family history of Ovarian cancer Prostate cancer Myocardial infarction Colorectal cancer Social History Preferred Language: Indonesian Communication Ability: Effective Manager Lab Required: No Beliefs That Will Affect Care: Pentecostalism Pentecostalism Beliefs: Amish marital status: Current Living Situation: Family current occupational status: retired Other Information That Helps Us Care for You: No Feels Safe at Home: Yes Smoking Status: Never smoker Second Hand Exposure: No ; Hx Alcohol Use: No Hx Substance Use: No Childhood Exposure to Second-Hand Smoke: No Dental Care, Regularly: Yes Physical Activity Frequency: Does not Exercise Review of Systems See HPI for pertinent positives & negatives. and A total of 10 systems reviewed and were otherwise negative Physical Exam Vital Signs Vital Signs - 24 hr 12/02/19 16:25 12/02/19 17:59 12/02/19 18:30 Temperature 36.3 C L Temperature Source Oral Pulse Rate 100 H Pulse Rate [Right Finger] 92 H 94 H Pulse Rhythm [Right Finger] Regular Pulse Strength [Right Finger] Normal Respiratory Rate 18 22 16 Respiratory Effort / Characteristics Non-Labored Non-Labored Spontaneous Respiratory Depth Normal Normal Respiratory Pattern Regular Blood Pressure 223/132 H Blood Pressure [Right Arm] 209/122 H 183/120 H Blood Pressure Mean 162 Blood Pressure Mean [Right Arm] 151 141 Blood Pressure Position [Right Arm] Lying Pulse Oximetry 96 94 94 Oxygen Delivery Method Room Air Room Air Room Air Sepsis Recent Fever Within 48 Hours No Sepsis New/Unexplained Change in Mental Status No Sepsis Action Taken by Nursing No Action Required 12/02/19 19:00 12/02/19 19:10 12/02/19 19:20 Temperature Temperature Source Pulse Rate 103 H 109 H 99 H Pulse Rate [Right Finger] Pulse Rhythm [Right Finger] Pulse Strength [Right Finger] Respiratory Rate 23 22 28 H Respiratory Effort / Characteristics Respiratory Depth Respiratory Pattern Blood Pressure 170/96 H Blood Pressure [Right Arm] Blood Pressure Mean 125 Blood Pressure Mean [Right Arm] Blood Pressure Position [Right Arm] Pulse Oximetry Oxygen Delivery Method Sepsis Recent Fever Within 48 Hours Sepsis New/Unexplained Change in Mental Status Sepsis Action Taken by Nursing 12/02/19 19:30 12/02/19 19:40 12/02/19 19:50 Temperature Temperature Source Pulse Rate 106 H 106 H 107 H Pulse Rate [Right Finger] Pulse Rhythm [Right Finger] Pulse Strength [Right Finger] Respiratory Rate 28 H 23 26 H Respiratory Effort / Characteristics Respiratory Depth Respiratory Pattern Blood Pressure 182/114 H Blood Pressure [Right Arm] Blood Pressure Mean 130 Blood Pressure Mean [Right Arm] Blood Pressure Position [Right Arm] Pulse Oximetry Oxygen Delivery Method Sepsis Recent Fever Within 48 Hours Sepsis New/Unexplained Change in Mental Status Sepsis Action Taken by Nursing 12/02/19 20:00 12/02/19 20:01 12/02/19 20:10 Temperature Temperature Source Pulse Rate 98 H 95 H 111 H Pulse Rate [Right Finger] Pulse Rhythm [Right Finger] Pulse Strength [Right Finger] Respiratory Rate 27 H 23 30 H Respiratory Effort / Characteristics Respiratory Depth Respiratory Pattern Blood Pressure 193/110 H Blood Pressure [Right Arm] Blood Pressure Mean 139 Blood Pressure Mean [Right Arm] Blood Pressure Position [Right Arm] Pulse Oximetry Oxygen Delivery Method Sepsis Recent Fever Within 48 Hours Sepsis New/Unexplained Change in Mental Status Sepsis Action Taken by Nursing 12/02/19 20:20 12/02/19 20:30 12/02/19 20:31 Temperature Temperature Source Pulse Rate 119 H 148 H 134 H Pulse Rate [Right Finger] Pulse Rhythm [Right Finger] Pulse Strength [Right Finger] Respiratory Rate 29 H 27 H 29 H Respiratory Effort / Characteristics Respiratory Depth Respiratory Pattern Blood Pressure 188/116 H Blood Pressure [Right Arm] Blood Pressure Mean 122 Blood Pressure Mean [Right Arm] Blood Pressure Position [Right Arm] Pulse Oximetry Oxygen Delivery Method Sepsis Recent Fever Within 48 Hours Sepsis New/Unexplained Change in Mental Status Sepsis Action Taken by Nursing 12/02/19 20:40 12/02/19 20:45 12/02/19 20:46 Temperature Temperature Source Pulse Rate 118 H 92 H 95 H Pulse Rate [Right Finger] Pulse Rhythm [Right Finger] Pulse Strength [Right Finger] Respiratory Rate 29 H 24 Respiratory Effort / Characteristics Respiratory Depth Respiratory Pattern Blood Pressure 143/76 H 193/110 H Blood Pressure [Right Arm] Blood Pressure Mean 88 Blood Pressure Mean [Right Arm] Blood Pressure Position [Right Arm] Pulse Oximetry Oxygen Delivery Method Sepsis Recent Fever Within 48 Hours Sepsis New/Unexplained Change in Mental Status Sepsis Action Taken by Nursing 12/02/19 20:50 12/02/19 21:00 12/02/19 21:01 Temperature Temperature Source Pulse Rate 99 H 88 87 Pulse Rate [Right Finger] Pulse Rhythm [Right Finger] Pulse Strength [Right Finger] Respiratory Rate 22 20 21 Respiratory Effort / Characteristics Respiratory Depth Respiratory Pattern Blood Pressure 117/69 Blood Pressure [Right Arm] Blood Pressure Mean 77 Blood Pressure Mean [Right Arm] Blood Pressure Position [Right Arm] Pulse Oximetry Oxygen Delivery Method Sepsis Recent Fever Within 48 Hours Sepsis New/Unexplained Change in Mental Status Sepsis Action Taken by Nursing 12/02/19 21:10 12/02/19 21:20 12/02/19 21:30 Temperature Temperature Source Pulse Rate 91 H 86 93 H Pulse Rate [Right Finger] Pulse Rhythm [Right Finger] Pulse Strength [Right Finger] Respiratory Rate 27 H 28 H 25 H Respiratory Effort / Characteristics Respiratory Depth Respiratory Pattern Blood Pressure Blood Pressure [Right Arm] Blood Pressure Mean Blood Pressure Mean [Right Arm] Blood Pressure Position [Right Arm] Pulse Oximetry Oxygen Delivery Method Sepsis Recent Fever Within 48 Hours Sepsis New/Unexplained Change in Mental Status Sepsis Action Taken by Nursing 12/02/19 21:31 12/02/19 21:40 Temperature Temperature Source Pulse Rate 97 H 91 H Pulse Rate [Right Finger] Pulse Rhythm [Right Finger] Pulse Strength [Right Finger] Respiratory Rate 21 28 H Respiratory Effort / Characteristics Respiratory Depth Respiratory Pattern Blood Pressure 137/81 Blood Pressure [Right Arm] Blood Pressure Mean 109 Blood Pressure Mean [Right Arm] Blood Pressure Position [Right Arm] Pulse Oximetry Oxygen Delivery Method Sepsis Recent Fever Within 48 Hours Sepsis New/Unexplained Change in Mental Status Sepsis Action Taken by Nursing GENERAL: Patient is in mild distress secondary to nausea. HEENT: No acute trauma, normocephalic atraumatic, mucous membranes dry, no nasal congestion, no scleral icterus. NECK: No stridor, no adenopathy, no meningismus, trachea is midline. LUNGS: Clear to auscultation bilaterally, no wheeze, no rhonchi, breath sounds equal. HEART: Without murmurs gallops or rubs, regular rate and rhythm. ABDOMEN: Soft, nontender, bowel sounds positive, no hernias, no peritonitis. EXTREMITIES: No cyanosis or edema, full range of motion of all the joints without pain or difficulty, no signs for acute trauma. NEUROLOGIC: Oriented x 3, no acute motor or sensory deficits, no focal weakness. Extremity tremor noted. SKIN: No rash, no jaundice, no diaphoresis. Course Course 163: Past medical records reviewed. The patient was evaluated in room A03. A complete history and physical exam was performed. 1902: Upon reevaluation, the patient is still severely nauseous. I discussed findings and results with the patient. She verbalized agreement of the treatment plan. The patient will be evaluated for further management and care. 1941: I spoke with Dr. Zafar of the [facility] Hospitalist Service. The patient will be evaluated for further management and care. 1944: The patient was reevaluated. I updated her of her urine results. Administered Medications Ioversol (Optiray 320 100ml) 89 ml IV ONCE PRN PRN Reason: Interaction Checking Stop: 12/06/19 17:47 Last Admin: 12/02/19 17:49 Dose: 89 ml Documented by: [id number] Discontinued Medications Hydralazine HCl (Hydralazine Hcl) 10 mg IV NOW STA Stop: 12/02/19 18:10 Last Admin: 12/02/19 18:27 Dose: 10 mg Documented by: [id number] Hydralazine HCl (Hydralazine Hcl) 10 mg IV NOW STA Stop: 12/02/19 19:47 Last Admin: 12/02/19 20:09 Dose: 10 mg Documented by: [id number] Sodium Chloride (Nss 1000ml) 1,000 mls @ 999 mls/hr IV .Q1H1M STEFAN Stop: 12/02/19 17:45 Last Infusion: 12/02/19 19:04 Dose: 0 mls/hr Documented by: [id number] Admin: 12/02/19 17:09 Dose: 999 mls/hr Documented by: [id number] Acetaminophen (Ofirmev) 1,000 mg in 100 mls @ 400 mls/hr IV NOW STA Stop: 12/02/19 16:56 Last Infusion: 12/02/19 18:00 Dose: 0 mls/hr Documented by: [id number] Admin: 12/02/19 17:09 Dose: 400 mls/hr Documented by: [id number] Ceftriaxone Sodium (Rocephin) 1,000 mg in 50 mls @ 100 mls/hr IV NOW STA Stop: 12/02/19 20:12 Last Infusion: 12/02/19 20:46 Dose: 0 mls/hr Documented by: [id number] Admin: 12/02/19 20:09 Dose: 100 mls/hr Documented by: [id number] Metoprolol Tartrate (Lopressor) Confirm Administered Dose 5 mg IV .STK-MED ONE Stop: 12/02/19 20:39 Last Admin: 12/02/19 20:46 Dose: 5 mg Documented by: [id number] Ondansetron HCl (Zofran) 4 mg IV NOW STA Stop: 12/02/19 16:43 Last Admin: 12/02/19 17:09 Dose: 4 mg Documented by: [id number] Ondansetron HCl (Zofran) 4 mg IV NOW STA Stop: 12/02/19 19:07 Last Admin: 12/02/19 19:16 Dose: 4 mg Documented by: [id number] Critical Care Time Critical Care Time: Yes Total Critical Care Time: 32 I have personally spent greater than 32 minutes of critical care time in the direct management of this patient. This includes bedside care, interpretation of diagnostic studies and testing, discussion with consultants, the patient, and family members, and other required patient management activities. This 32 minutes is in excess of all separately billable procedures. Medical Decision Making Differential Diagnosis Differential diagnosis includes: dehydration, food borne or vial illness, constipation, bowel obstruction, UTI, electrolyte imbalance, renal failure Medical Records Attestation: I reviewed the patient's medical records. Home Medications Current Medication List: was personally reviewed by me Laboratory Data Attestation: I reviewed the patient's lab results. Result diagrams: 12/02/19 16:53 12/02/19 16:53 Lab Results 12/02/19 12/02/19 Range/Units 16:53 16:53 WBC 7.53 (4.8-10.8) K/uL RBC 5.06 (4.2-5.4) M/uL Hgb 15.9 (12.0-16.0) g/dL Hct 46.3 (37-47) % MCV 91.5 (80-100) fL MCH 31.4 (25-34) pg MCHC 34.3 (32-36) g/dL RDW Std Deviation 47.8 H (36.4-46.3) fL RDW Coeff of Ju 14.2 (11.5-14.5) % Plt Count 181 (130-400) K/uL MPV 10.9 H (7.4-10.4) fL Immature Gran % (Auto) 0.3 % Neut % (Auto) 86.7 % Lymph % (Auto) 10.0 % Bailey % (Auto) 2.9 % Eos % (Auto) 0.0 % Baso % (Auto) 0.1 % Immature Gran # (Auto) 0.02 (0.00-0.02) K/uL Neut # (Auto) 6.53 H (1.4-6.5) K/uL Lymph # (Auto) 0.75 L (1.2-3.4) K/uL Bailey # (Auto) 0.22 (0.11-0.59) K/uL Eos # (Auto) 0.00 (0-0.5) K/uL Baso # (Auto) 0.01 (0-0.2) K/uL Sodium 134 L (136-145) mmol/L Potassium 3.7 (3.5-5.1) mmol/L Chloride 101 (98-107) mmol/L Carbon Dioxide 24 (21-32) mmol/L Anion Gap 8.0 (3-11) BUN 15 (7-18) mg/dl Creatinine 0.88 (0.6-1.2) mg/dl Est Cr Clr Drug Dosing 42.8 ml/min Est GFR ( Amer) 69.9 Est GFR (Non-Af Amer) 60.3 BUN/Creatinine Ratio 16.7 (10-20) Glucose 141 H (70-99) mg/dl Calcium 9.5 (8.5-10.1) mg/dl Magnesium 1.8 (1.8-2.4) mg/dl Total Bilirubin 0.8 (0.2-1) mg/dl AST 13 L (15-37) U/L ALT 16 (12-78) U/L Alkaline Phosphatase 51 (45-117) U/L Troponin I < 0.015 (0-0.045) ng/ml Total Protein 8.6 H (6.4-8.2) gm/dl Albumin 4.5 (3.4-5.0) gm/dl Globulin 4.1 H (2.5-4.0) gm/dl Albumin/Globulin Ratio 1.1 (0.9-2) TSH 0.624 (0.300-4.500) uIu/ml Imaging Data Radiologist's Impression: Radiology results as stated below per my review and the radiologist's interpretation: CT abd pelvis IV con only CLINICAL HISTORY: Abdominal pain. Possible bowel obstruction. COMPARISON STUDY: 2008 TECHNIQUE: The patient was scanned in a dynamic helical fashion during intravenous administration of 89 cc of Optiray 320 A dose lowering technique was utilized adhering to the principles of ALARA. CT DOSE: 441.53 mGycm FINDINGS: Lower chest: There are dependent atelectatic changes present. There is a small hiatal hernia. Liver: The contrast-enhanced liver is normal in size, contour, and attenuation. There is no intrahepatic biliary ductal dilatation. The hepatic veins and portal veins are patent. Gallbladder: Unremarkable. Spleen: Normal in size and attenuation. Pancreas: There is mild dilatation of the main pancreatic duct. No focal pancreatic masses are visualized. There is no evidence of pancreatic atrophy. Adrenal glands: Unremarkable. Kidneys: There are subcentimeter renal hypodensities, consistent with cysts. Bowel: There are no transition zones indicate bowel obstruction. There is no evidence of acute appendicitis. There is no evidence of acute diverticulitis. Peritoneum: There is no intraperitoneal free air or abdominal ascites. Vasculature: The abdominal aorta is normal in course and caliber. Adenopathy: None. Pelvic viscera: The bladder, and pelvic viscera are unremarkable. Skeletal structures: No destructive osseous lesions are seen. IMPRESSION: 1. No evidence of bowel obstruction. No evidence of free air 2. Scattered colonic diverticula. No evidence of acute diverticulitis 3. No evidence of acute appendicitis 4. Mild pancreatic ductal dilatation. No pancreatic masses identified. ACT 112: Negative or not required by law. Electronically signed by: Igor Cm M.D. 12/02/2019 6:05 PM XR chest 1V portable CLINICAL HISTORY: 84 years-old Female presenting with weakness. TECHNIQUE: Portable upright AP view of the chest was obtained. COMPARISON: 11/22/2017. FINDINGS: Atherosclerosis of the aortic arch. Tortuosity of the descending thoracic aorta. Cardiac silhouette top normal in size. Mild hyperinflation. No focal opacity. No large effusion or pneumothorax. 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 Upper abdomen normal. IMPRESSION: 1. No acute cardiopulmonary disease. ACT 112: Negative or not required by law. Electronically signed by: Naga Persaud M.D. 12/02/2019 5:10 PM ECG Data Attestation: I personally reviewed and interpreted this ECG as follows: Indication: + vomiting Rate (beats per minute): 78 Rhythm: + normal sinus ECG Intervals/blocks: + Normal QT-c (474) ECG ST segments: no ST elevation ECG Findings: no PVCs Blood Pressure Blood Pressure Findings: Elevated blood pressure Blood Pressure Disposition: further management by hospitalist MARILEE Hobson Continuous Cardiac Monitoring: An order was placed for continuous cardiac monitoring. The monitor shows a rate of 86 with a normal sinus rhythm. There is no leukocytosis or concerning anemia. No significant electrolyte abnormality or kidney failure. No concerning liver enzyme elevation. The patient appears to be in a euthyroid state. EKG shows a sinus rhythm, no acute ischemia. Cardiac enzyme testing x1 is not consistent with acute cardiac inj ury. Urinalysis is consistent with infection. Chest film does not show free air, pneumonia or CHF. Abdominal and pelvis CT does not show diverticulitis, there is no bowel rupture, no bowel obstruction. On exam, the patient seemed uncomfortable from her nausea. She was somewhat shaky and maybe somewhat dehydrated. She was not febrile or toxic. The patient was given IV hydralazine, a second dose of hydralazine was given IV for persistent high blood pressure. She received IV saline 1 L. She received IV Zofran, a second dose of IV Zofran was given. She received IV Tylenol, she was given IV ceftriaxone. The patient is still not feeling well despite all the above treatment. I do think she requires a hospital stay. Certainly, the UTI could be causing a lot of her presentation. There may be a viral component to her illness or possibly a foodborne component to her illness. In any regard, hospitalization is warranted for further care. I did speak to the patient and case management. The on-call hospitalist was consulted. Impression & Plan Weakness, Vomiting, Dehydration, Uncontrolled hypertension Discharge Plan Visit Data *Final* Discharge Date/Time: 12/02/19 22:22 Chief Complaint: Illness Stated Complaint: DIARRHEA, VOMITING ED Provider: Jason Fang Discharge Problem: Weakness, Vomiting, Dehydration, Uncontrolled hypertension Patient Disposition: Admitted As Inpatient Discharge Instructions Interventions: ED Discharge Assessment Last Done: 12/02/19 22:22 Discharge Problem: Vomiting Qualifiers: Vomiting type: unspecified Vomiting Intractability: unspecified Nausea presence: with nausea Qualified Code(s): R11.2 - Nausea with vomiting, unspe cified The scribe's documentation has been prepared under my direction and personally reviewed by me in its entirety. I confirm that the note above accurately reflects all work, treatment, procedures, and medical decision making performed by me.
[2019-12-02 17:25] LABS: Alanine Aminotransferase 16 U/L (12-78); Albumin Level 4.5 gm/dl (3.4-5.0); Aspartate Aminotransferase 13 U/L (15-37); BUN Creatinine Ratio 16.7 (10-20); Blood Urea Nitrogen 15 mg/dl (7-18); Calcium 9.5 mg/dl (8.5-10.1); Carbon Dioxide 24 mmol/L (21-32); Chloride 101 mmol/L (98-107); Creatinine Clr Calc Pharmacy 42.8 ml/min; Est GFR (African American) 69.9; Est GFR (Non-African American) 60.3; Glucose 141 mg/dl (70-99); Magnesium 1.8 mg/dl (1.8-2.4); Potassium 3.7 mmol/L (3.5-5.1); Sodium 134 mmol/L (136-145)
[2019-12-02 17:36] LABS: Albumin Globulin Ratio 1.1 (0.9-2); Alkaline Phosphatase 51 U/L (45-117); Bilirubin,Total 0.8 mg/dl (0.2-1); Globulin 4.1 gm/dl (2.5-4.0); Thyroid Stimulating Hormone 0.624 uIu/ml (0.300-4.500); Total Protein 8.6 gm/dl (6.4-8.2); Troponin I < 0.015 ng/ml (0-0.045)
[2019-12-02] MEDS ORDERED: IOVERSOL 100ml IV PRN (17:48)
--- NOTE | 2019-12-02 18:06 | CT Scan Report ---
CT abd pelvis IV con only CLINICAL HISTORY: Abdominal pain. Possible bowel obstruction. COMPARISON STUDY: 2008 TECHNIQUE: The patient was scanned in a dynamic helical fashion during intravenous administration of 89 cc of Optiray 320 A dose lowering technique was utilized adhering to the principles of ALARA. CT DOSE: 441.53 mGycm FINDINGS: Lower chest: There are dependent atelectatic changes present. There is a small hiatal hernia. Liver: The contrast-enhanced liver is normal in size, contour, and attenuation. There is no intrahepa tic biliary ductal dilatation. The hepatic veins and portal veins are patent. Gallbladder: Unremarkable. Spleen: Normal in size and attenuation. Pancreas: There is mild dilatation of the main pancreatic duct. No focal pancreatic masses are visual ized. There is no evidence of pancreatic atrophy. Adrenal glands: Unremarkable. Kidneys: There are subcentimeter renal hypodensities, consistent with cysts. Bowel: There are no transition zones indicate bowel obstruction. There is no evidence of acute append icitis. There is no evidence of acute diverticulitis. Peritoneum: There is no intraperitoneal free air or abdominal ascites. Vasculature: The abdominal aorta is normal in course and caliber. Adenopathy: None. Pelvic viscera: The bladder, and pelvic viscera are unremarkable. Skeletal structures: No destructive osseous lesions are seen. IMPRESSION: 1. No evidence of bowel obstruction. No evidence of free air 2. Scattered colonic diverticula. No evidence of acute diverticulitis 3. No evidence of acute appendicitis 4. Mild pancreatic ductal dilatation. No pancreatic masses identified. ACT 112: Negative or not required by law. Electronically signed by: Igor Cm M.D. 12/02/2019 6:05 PM
[2019-12-02] MEDS ORDERED: HydrALAZINE HCL 20 MG/ML VIAL IV STA ×2 (18:09→19:46)
[2019-12-02 19:31] LABS: Appearance Urine Cloudy (Clear); Bacteria Urine Automated Negative (Negative); Bilirubin Urine Negative (Negative); Blood Urine 1+ (Negative); Cast Urine Automated 0 /lpf (0-5); Color Urine Yellow; Glucose Urine UA Trace (Negative); Ketones Urine 1+ (Negative); Leukocyte Esterase Urine 3+ (Negative); Nitrite Urine Negative (Negative); Urobilinogen Urine Negative (Negative); WBC Urine Automated >30 /hpf (0-5)
[2019-12-02 19:39] LABS: Protein Urine Trace (Negative); Sulfosalicylic Acid Urine Positive (Negative)
[2019-12-02] MEDS ORDERED: cefTRIAXone SODIUM 1,000 MG/50 ML BAG IV STA (19:43)
[2019-12-02] MEDS ORDERED: METOPROLOL TARTRATE 1 MG/ML VIAL IV STA (20:34)
[2019-12-02] MEDS ORDERED: METOPROLOL TARTRATE 1 MG/ML VIAL IV ONE (20:38)
[2019-12-02 21:23] LABS: Influenza A virus by PCR Neg for Influ A (Neg); Influenza B virus by PCR Neg for Influ B (Neg)
[2019-12-02] MEDS ORDERED: ACETAMINOPHEN 325 MG TAB PO PRN (22:32)
[2019-12-02] MEDS ORDERED: ONDANSETRON INJ 2 MG/ML 2 ML VIAL IV PRN (22:32)
--- NOTE | 2019-12-02 23:20 | History & Physical Report ---
Date of Service December 02, 2019 Assessment & Plan (1) Urinary tract infection: Follow urine culture and sensitivity. Ceftriaxone 1 g IV daily. Present on Admission?: Yes (2) Vomiting: Patient presented to the emergency department with nausea and vomiting. CT of abdomen pelvis was negative for acute findings but did show some mild pancreatic duct dilatation, with normal laboratories. She did not have significant improvement with Zofran 4 mg IV x2. Her blood pressure was uncontrolled, it did not respond hydralazine 10 mg IV x2 given by the ED. She did respond to Lopressor 5 mg IV, and as her blood pressure and heart rate declined normal levels, her nausea vomiting resolved. Symptoms are likely combination of uncontrolled hypertension and metabolic encephalopathy due to UTI. She will continue with IV fluid rehydration. Present on Admission?: Yes (3) Weakness: See above Present on Admission?: Yes (4) Dehydration: See above Present on Admission?: Yes (5) Decreased strength, endurance, and mobility: See above Present on Admission?: Yes (6) Uncontrolled hypertension: As noted above, blood pressure did respond to Lopressor 5 mg IV. Resume her normal medication regimen tomorrow if nausea vomiting appears to be completely resolved. Present on Admission?: Yes (7) Depression: Anxiety and depression- Resume bupropion, clonazepam, clonidine and divalproex tomorrow. Present on Admission?: Yes (8) Anxiety: See above Present on Admission?: Yes History of Present Illness Chief Complaint: The patient presents to the emergency department with nausea and vomiting and generalized weakness. Primary Care Provider: Kofi Dumont MD The patient is a 84-year-old female with a past medical history including hypertension, osteoporosis, GERD, DJD, occipital neuralgia and TMJ dislocation. She presents to the emergency department with nausea, vomiting and generalized weakness, and was found to have uncontrolled hypertension in the ED with heart rate up to 130 and blood pressure in the 180s over 110s. Work-up also included urinalysis which was positive for UTI. Allergies Allergy/AdvReac Type Severity Reaction Status Date / Time Sulfa (Sulfonamide Allergy Unknown told so Verified 12/02/19 18:19 Antibiotics) many years ago, ? remember Home Medications Home Medications Medication Instructions Recorded Confirmed Type oxybutynin chloride 10 mg 10 mg PO QAM #90 tab 04/11/19 12/02/19 History tablet,extended release 24 hr clonazepam 0.5 mg tablet 0.5 mg PO BID tab 07/25/19 12/02/19 History clonidine HCl 0.2 mg PO HS 09/04/19 12/02/19 History divalproex 250 mg PO HS 09/04/19 12/02/19 History lidocaine [Lidoderm] 1 patch TOP DAILY PRN #15 ea 09/04/19 12/02/19 Rx alendronate 70 mg PO WK 12/02/19 12/02/19 History bupropion HCl 100 mg PO DAILY 12/02/19 12/02/19 History Past Med/Surg History Medical History Anxiety Chronic neck pain Depression Dislocated mandible H/O History of skin cancer Osteoarthritis Osteoporosis Osteoporosis Overactive bladder Surgical History History of cataract surgery History of colonoscopy History of Mohs surgery for squamous cell carcinoma in situ of skin History of tonsillectomy Family History Sister Breast cancer Denies family history of Ovarian cancer Prostate cancer Myocardial infarction Colorectal cancer Social History Preferred Language: Mexican Communication Ability: Effective Manager Policy Required: No Beliefs That Will Affect Care: Jehovah'S Witness Jehovah'S Witness Beliefs: Moravian marital status: Current Living Situation: Family current occupational status: retired Other Information That Helps Us Care for You: No Feels Safe at Home: Yes Smoking Status: Never smoker Second Hand Exposure: No ; Hx Alcohol Use: No Hx Substance Use: No Childhood Exposure to Second-Hand Smoke: No Dental Care, Regularly: Yes Physical Activity Frequency: Does not Exercise Review of Systems Review of Systems: The patient denies chest pain, palpitations, shortness of breath, dyspnea on exertion, cough, lower extremity swelling, sore throat, fevers, chills, sweats, diarrhea , constipation, abdominal pain, pelvic pain, blood in urine or stool, dysuria, urinary frequency or urgency, loss of consciousness, rash, abnormal bruising or bleeding, imbalance, focal weakness, numbness or tingling in arms or legs, generalized arthralgias or myalgias, back or neck pain, or night sweats. The review of systems is otherwise negative other than for that already noted above, and at least 10 systems have been reviewed. Physical Exam Physical Exam: The patient is awake, alert and oriented 3, normocephalic and atraumatic, lying in bed and in moderate distress secondary to vomiting HEENT--PERRL, EOMI, mucous membranes and oropharynx dry. Neck--supple. No JVD. No bruits. Thyroid normal, trachea midline, no adenopathy. Heart--normal S1 and S2. No murmurs, rubs or gallops. Lungs--clear bilaterally, no respiratory distress, no accessory muscle use. Abdomen--normal bowel sounds and soft. Nontender. Nondistended. Extremities--no cyanosis or clubbing. No edema. There are good distal pulses b/l. Dermatologic--normal skin turgor, normal color, no abnormal lymph nodes, no ra sh. Neurologic--cranial nerves II through XII grossly intact. Rheumatologic--normal range of motion. Psychiatric--normal affect. Results & Data Vital Signs (Past 12 Hours) Vital Signs Temp Pulse Pulse Resp BP BP Pulse Ox 12/02/19 23:13 92 H 12/02/19 22:47 97.9 F 95 H 20 180/95 H 93 12/02/19 22:00 91 H 17 120/78 12/02/19 21:50 94 H 22 12/02/19 21:40 91 H 28 H 12/02/19 21:31 97 H 21 137/81 12/02/19 21:30 93 H 25 H 12/02/19 21:20 86 28 H 12/02/19 21:10 91 H 27 H 12/02/19 21:01 87 21 117/69 12/02/19 21:00 88 20 12/02/19 20:50 99 H 22 12/02/19 20:46 95 H 193/110 H 12/02/19 20:45 92 H 24 143/76 H 12/02/19 20:40 118 H 29 H 12/02/19 20:31 134 H 29 H 188/116 H 12/02/19 20:30 148 H 27 H 12/02/19 20:20 119 H 29 H 12/02/19 20:10 111 H 30 H 12/02/19 20:01 95 H 23 12/02/19 20:00 98 H 27 H 193/110 H 12/02/19 19:50 107 H 26 H 12/02/19 19:40 106 H 23 12/02/19 19:30 106 H 28 H 182/114 H 12/02/19 19:20 99 H 28 H 12/02/19 19:10 109 H 22 12/02/19 19:00 103 H 23 170/96 H 12/02/19 18:30 94 H 16 183/120 H 94 12/02/19 17:59 92 H 22 209/122 H 94 12/02/19 16:25 97.3 F L 100 H 18 223/132 H 96 Laboratory Results Laboratory Results WBC 7.53 K/uL (4.8-10.8) 12/02/19 16:53 RBC 5.06 M/uL (4.2-5.4) 12/02/19 16:53 Hgb 15.9 g/dL (12.0-16.0) 12/02/19 16:53 Hct 46.3 % (37-47) 12/02/19 16:53 MCV 91.5 fL (80-100) 12/02/19 16:53 MCH 31.4 pg (25-34) 12/02/19 16:53 MCHC 34.3 g/dL (32-36) 12/02/19 16:53 RDW Std Deviation 47.8 fL (36.4-46.3) H 12/02/19 16:53 RDW Coeff of Ju 14.2 % (11.5-14.5) 12/02/19 16:53 Plt Count 181 K/uL (130-400) 12/02/19 16:53 MPV 10.9 fL (7.4-10.4) H 12/02/19 16:53 Immature Gran % (Auto) 0.3 % 12/02/19 16:53 Neut % (Auto) 86.7 % 12/02/19 16:53 Lymph % (Auto) 10.0 % 12/02/19 16:53 Ashley % (Auto) 2.9 % 12/02/19 16:53 Eos % (Auto) 0.0 % 12/02/19 16:53 Baso % (Auto) 0.1 % 12/02/19 16:53 Immature Gran # (Auto) 0.02 K/uL (0.00-0.02) 12/02/19 16:53 Neut # (Auto) 6.53 K/uL (1.4-6.5) H 12/02/19 16:53 Lymph # (Auto) 0.75 K/uL (1.2-3.4) L 12/02/19 16:53 Ashley # (Auto) 0.22 K/uL (0.11-0.59) 12/02/19 16:53 Eos # (Auto) 0.00 K/uL (0-0.5) 12/02/19 16:53 Baso # (Auto) 0.01 K/uL (0-0.2) 12/02/19 16:53 Sodium 134 mmol/L (136-145) L 12/02/19 16:53 Potassium 3.7 mmol/L (3.5-5.1) 12/02/19 16:53 Chloride 101 mmol/L (98-107) 12/02/19 16:53 Carbon Dioxide 24 mmol/L (21-32) 12/02/19 16:53 Anion Gap 8.0 (3-11) 12/02/19 16:53 BUN 15 mg/dl (7-18) 12/02/19 16:53 Creatinine 0.88 mg/dl (0.6-1.2) 12/02/19 16:53 Est Cr Clr Drug Dosing 42.8 ml/min 12/02/19 16:53 Est GFR ( Amer) 69.9 12/02/19 16:53 Est GFR (Non-Af Amer) 60.3 12/02/19 16:53 BUN/Creatinine Ratio 16.7 (10-20) 12/02/19 16:53 Glucose 141 mg/dl (70-99) H 12/02/19 16:53 Calcium 9.5 mg/dl (8.5-10.1) 12/02/19 16:53 Magnesium 1.8 mg/dl (1.8-2.4) 12/02/19 16:53 Total Bilirubin 0.8 mg/dl (0.2-1) 12/02/19 16:53 AST 13 U/L (15-37) L 12/02/19 16:53 ALT 16 U/L (12-78) 12/02/19 16:53 Alkaline Phosphatase 51 U/L (45-117) 12/02/19 16:53 Troponin I < 0.015 ng/ml (0-0.045) 12/02/19 16:53 Total Protein 8.6 gm/dl (6.4-8.2) H 12/02/19 16:53 Albumin 4.5 gm/dl (3.4-5.0) 12/02/19 16:53 Globulin 4.1 gm/dl (2.5-4.0) H 12/02/19 16:53 Albumin/Globulin Ratio 1.1 (0.9-2) 12/02/19 16:53 TSH 0.624 uIu/ml (0.300-4.500) 12/02/19 16:53 Urine Color Yellow 12/02/19 Unknown Urine Appearance Cloudy (Clear) A 12/02/19 Unknown Urine pH 8.0 (4.5-7.5) H 12/02/19 Unknown Ur Specific [place] 1.020 (1.000-1.030) 12/02/19 Unknown Urine Protein Trace (Negative) H 12/02/19 Unknown Urine Glucose (UA) Trace (Negative) H 12/02/19 Unknown Urine Ketones 1+ (Negative) H 12/02/19 Unknown Urine Blood 1+ (Negative) H 12/02/19 Unknown Urine Nitrite Negative (Negative) 12/02/19 Unknown Urine Bilirubin Negative (Negative) 12/02/19 Unknown Urine Urobilinogen Negative (Negative) 12/02/19 Unknown Ur Leukocyte Esterase 3+ (Negative) H 12/02/19 Unknown Urine WBC (Auto) >30 /hpf (0-5) H 12/02/19 Unknown Urine RBC (Auto) 5-10 /hpf (0-4) H 12/02/19 Unknown U Hyaline Cast (Auto) 0 /lpf (0-5) 12/02/19 Unknown U Epithel Cells (Auto) 5-10 /lpf (0-5) H 12/02/19 Unknown Urine Bacteria (Auto) Negative (Negative) 12/02/19 Unknown Influenza Type A (PCR) Neg for Influ A (Neg) 12/02/19 Unknown Influenza Type B (PCR) Neg for Influ B (Neg) 12/02/19 Unknown Diagnostic Findings [facility], [place] [phone] CT Scan Report Patient: HIRA ALVAREZ Date: 12/02/19 MR#: [id number]: [address] Acct ID:[id number]: Date: 1935ity Zip: [place] [address] Age: 84Location: ED Sex: F Room/Bed: Att Phy:Diagnosis: DIARRHEA, VOMITING Shanthi Phy: Kofi Dumont MDService Date: 12/02/19 Fam Phy:Interpreting Phy: Igor Cm MD Admit Phy: Ordering Phy: Jason Fang M.D. cc: ~ CT abd pelvis IV con only CLINICAL HISTORY: Abdominal pain. Possible bowel obstruction. COMPARISON STUDY: 2008 TECHNIQUE: The patient was scanned in a dynamic helical fashion during intravenous administration of 89 cc of Optiray 320 A dose lowering technique was utilized adhering to the principles of ALARA. CT DOSE: 441.53 mGycm FINDINGS: Lower chest: There are dependent atelectatic changes present. There is a small hiatal hernia. Liver: The contrast-enhanced liver is normal in size, contour, and attenuation. There is no intrahepatic biliary ductal dilatation. The hepatic veins and portal veins are patent. Gallbladder: Unremarkable. Spleen: Normal in size and attenuation. Pancreas: There is mild dilatation of the main pancreatic duct. No focal pancreatic masses are visualized. There is no evidence of pancreatic atrophy. Adrenal glands: Unremarkable. Kidneys: There are subcentimeter renal hypodensities, consistent with cysts. Bowel: There are no transition zones indicate bowel obstruction. There is no evidence of acute appendicitis. There is no evidence of acute diverticulitis. Peritoneum: There is no intraperitoneal free air or abdominal ascites. Vasculature: The abdominal aorta is normal in course and caliber. Adenopathy: None. Pelvic viscera: The bladder, and pelvic viscera are unremarkable. Skeletal structures: No destructive osseous lesions are seen. IMPRESSION: 1. No evidence of bowel obstruction. No evidence of free air 2. Scattered colonic diverticula. No evidence of acute diverticulitis 3. No evidence of acute appendicitis 4. Mild pancreatic ductal dilatation. No pancreatic masses identified. ACT 112: Negative or not required by law. Electronically signed by: Igor Cm M.D. 12/02/2019 6:05 PM Dictated: 12/02/191757 Transcribed: 12/02/191757 [place], [place] [phone] XRay Report Patient: HIRA ALVAREZ Date: 12/02/19 MR#: [id number]: [address] Acct ID:[id number]: Date: [address] [place] [address] Zip: [place] [address] Age: 84Location: ED Sex: F Room/Bed: Att Phy:Diagnosis: DIARRHEA, VOMITING Shanthi Phy: Kofi Dumont MDService Date: 12/02/19 Fam Phy:Interpreting Phy: Naga Persaud MD Admit Phy: Ordering Phy: Jason Fang M.D. cc: ~ XR chest 1V portable CLINICAL HISTORY: 84 years-old Female presenting with weakness. TECHNIQUE: Portable upright AP view of the chest was obtained. COMPARISON: 11/22/2017. FINDINGS: Atherosclerosis of the aortic arch. Tortuosity of the descending thoracic aorta. Cardiac silhouette top normal in size. Mild hyperinflation. No focal opacity. No large effusion or pneumothorax. 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 Upper abdomen normal. IMPRESSION: 1. No acute cardiopulmonary disease. ACT 112: Negative or not required by law. Electronically signed by: Naga Persaud M.D. 12/02/2019 5:10 PM Dictated: 12/02/191708 Transcribed: 12/02/191708 Code Status & VTE Plan Code Status Full code VTE Prophylaxis Plan VTE Prophylaxis will be ordered: Yes PG Care Time/CCT Total # of Minutes Spent Total Time Spent with Patient: Total time spent is greater than 50% in coordination of care (as documented) at patient's floor/unit and/or counseling patient: Coding Level of Care Code 16792 OBS Care - Level 3 Diagnoses Urinary tract infection N39.0 Vomiting R11.2 Nausea presence: with nausea Vomiting Intractability: unspecified Vomiting type: unspecified Weakness R53.1 Dehydration E86.0 Decreased strength, endurance, and mobility R53.1; Z74.09 Uncontrolled hypertension I10 Depression F32.9 Anxiety F41.9 (1) Vomiting Nausea presence: with nausea Vomiting Intractability: unspecified Vomiting type: unspecified Qualified Code(s): R11.2 - Nausea with vomiting, unspecified
[2019-12-02] MEDS: NSS + 20MEQ KCL 20 MEQ/1,000 ML BAG IV SCH (23:43)
[2019-12-03] MEDS: PROCHLORPERAZINE 10 MG in SYRINGE 8 ML IV PRN ×2 (00:14→08:54)
[2019-12-03] MEDS ORDERED: METOPROLOL TARTRATE 25 MG TAB PO STA (03:40)
[2019-12-03] MEDS ORDERED: HydrALAZINE HCL 20 MG/ML VIAL IV PRN (08:44)
[2019-12-03] MEDS: clonazePAM 0.5 MG TAB PO SCH ×2 (08:54→20:23)
[2019-12-03] MEDS: HEPARIN SOD 5,000 UNIT/0.5 ML VIAL SQ SCH ×2 (08:55→20:24)
[2019-12-03] MEDS: BuPROPion SR 100 MG TABCR PO SCH (08:55)
[2019-12-03] MEDS: OXYBUTYNIN CHLORIDE XL 5 MG TABCR PO SCH (08:55)
--- NOTE | 2019-12-03 12:26 | Hospitalist Progress Note ---
Date of Service December 03, 2019 Assessment & Plan (1) Urinary tract infection: UA on 12/02 indicated infection - Follow urine culture and sensitivity. - Continue ceftriaxone (2) Vomiting: Patient presented to the emergency department with nausea and vomiting. CT of abdomen pelvis was negative for acute findings but did show some mild pancreatic duct dilatation with normal laboratories. - Son reports she hasn't eaten well for weeks & maybe months. - Zofran PRN - Depending on clinical course, could consider GI consult and/or further testing. (3) Weakness: Seems to have been declining for some time at home. - PT/OT once more able to participate (4) Uncontrolled hypertension: Blood pressure was as high as 220/130 in the ED. This is likely due to rebound hypertension from not taking her home meds (of which clonidine is one). - Presently holding clonidine - Hydralazine PRN is keeping her BP reasonable for now (140/80). (5) Depression: Has significant life stressors at present. - Resume bupropion, clonazepam, and divalproex as able (6) Anxiety: See above (7) DVT prophylaxis: Heparin 5,000 units Q12h Admission and Anticipated Discharge Date Admission Date: December 02, 2019 Subjective Very tired this morning. She really won't participate in conversation this morning and just says she wants to go to sleep. Review of Systems Review of Systems: Unobtainable due to cognitive status Physical Exam Constitutional: WD/WN, vitals as above + frail appearing, + in distress and + lethargic Eyes: EOM intact bilaterally; no conjunctival abnormality ENMT: external ear and nose normal, oropharynx normal Neck: trachea midline, no thyromegaly normal visual inspection Respiratory: normal respiratory effort, lungs clear to auscultation no respiratory distress Cardiovascular: Rate/Rhythm: regular rhythm and + tachycardic Gastrointestinal (Abdomen): Inspection/Auscultation: abdomen normal to inspection; abdomen not distended Musculoskeletal: no cyanosis or clubbing, extremities motor strength 5/5 Skin: no rashes, warm and dry Neurologic: moves all extremities; + not awake Psychiatric: Orientation: + not alert, + not oriented to person and + uncooperative Results & Data ([facility]) Vital Signs (Past 12 Hours) Vital Signs Temp Pulse Pulse Resp BP BP Pulse Ox 12/03/19 11:36 36.7 C 108 H 18 137/78 95 12/03/19 07:00 90 12/03/19 06:59 36.4 C L 108 H 18 202/110 H 197/111 H 94 12/03/19 02:47 36.6 C 97 H 18 174/106 H 93 PG Care Time/CCT Total # of Minutes Spent Total Time Spent with Patient: Total time spent is greater than 50% in coordination of care (as documented) at patient's floor/unit and/or counseling patient: Coding Level of Care Code 65514 Subseq Hosp Care Lvl 3 Diagnoses Urinary tract infection N39.0 Vomiting R11.2 Nausea presence: with nausea Vomiting Intractability: unspecified Vomiting type: unspecified Weakness R53.1 Uncontrolled hypertension I10 Depression F32.9 Anxiety F41.9 DVT prophylaxis Z29.9 (1) Vomiting Nausea presence: with nausea Vomiting Intractability: unspecified Vomiting type: unspecified Qualified Code(s): R11.2 - Nausea with vomiting, unspecified
[2019-12-03] MEDS: NSS + 20MEQ KCL 20 MEQ/1,000 ML BAG IV SCH (12:30)
[2019-12-03] MEDS ORDERED: cefTRIAXone SODIUM 1,000 MG in DEXTROSE 5% 50 ML IV SCH (20:00)
[2019-12-03] MEDS ORDERED: DIVALPROEX DELAY RELEASE 250 MG TABEC PO SCH (21:00)
--- NOTE | 2019-12-03 22:42 | Electrocardiogram Report ---
Test Reason : Blood Pressure : / mmHG Vent. Rate : 078 BPM Atrial Rate : 078 BPM P-R Int : 132 ms QRS Dur : 072 ms QT Int : 416 ms P-R-T Axes : 070 047 057 degrees QTc Int : 474 ms Poor data quality, interpretation may be adversely affected Normal sinus rhythm Possible Left atrial enlargement Borderline ECG When compared with ECG of 09-SEP-2019 11:31, No significant change Confirmed by Kai Edmonds ([id number]) on 12/03/2019 10:42:36 PM Referred By: REFERRED SELF Confirmed By:Kai Edmonds
[2019-12-04] MEDS ORDERED: CEFDINIR 300 MG CAP PO SCH
[2019-12-04] MEDS: NSS + 20MEQ KCL 20 MEQ/1,000 ML BAG IV SCH ×2 (01:09→13:09)
--- NOTE | 2019-12-04 05:55 | Electrocardiogram Report ---
Test Reason : Blood Pressure : / mmHG Vent. Rate : 087 BPM Atrial Rate : 087 BPM P-R Int : 142 ms QRS Dur : 074 ms QT Int : 412 ms P-R-T Axes : 048 001 046 degrees QTc Int : 495 ms Normal sinus rhythm Possible Anterior infarct , age undetermined Prolonged QT Abnormal ECG When compared with ECG of 02-DEC-2019 17:05, Borderline criteria for Anterior infarct are now Present Confirmed by Kai Edmonds ([id number]) on 12/04/2019 5:55:16 AM Referred By: REFERRED SELF Confirmed By:Kai Edmonds
[2019-12-04] MEDS: OXYBUTYNIN CHLORIDE XL 5 MG TABCR PO SCH (08:33)
[2019-12-04] MEDS: BuPROPion SR 100 MG TABCR PO SCH (08:33)
[2019-12-04] MEDS: clonazePAM 0.5 MG TAB PO SCH (08:33)
[2019-12-04] MEDS: HEPARIN SOD 5,000 UNIT/0.5 ML VIAL SQ SCH (08:33)
[2019-12-04 08:52] LABS: Hematocrit (blood only) 43.7 % (37-47); Hemoglobin 14.5 g/dL (12.0-16.0); Mean Corpuscular Hemoglobin 30.9 pg (25-34); Mean Corpuscular Hgb Conc 33.2 g/dL (32-36); Mean Corpuscular Volume 93.2 fL (80-100); Platelet Count 168 K/uL (130-400); RDW Coefficient of Variation 14.7 % (11.5-14.5); RDW Standard Deviation 49.6 fL (36.4-46.3); Red Blood Count 4.69 M/uL (4.2-5.4); White Blood Count 8.16 K/uL (4.8-10.8)
[2019-12-04 09:40] LABS: BUN Creatinine Ratio 20.7 (10-20); Calcium 8.4 mg/dl (8.5-10.1); Creatinine Clr Calc Pharmacy 54.6 ml/min; Est GFR (African American) 92.6; Est GFR (Non-African American) 79.9; Potassium 3.4 mmol/L (3.5-5.1)
[2019-12-04] MEDS ORDERED: Nursing to Pharmacy Communication ONE (17:09)
--- NOTE | 2019-12-04 17:21 | Discharge Summary ---
Date of Service December 04, 2019 Admission HPI Per Admitting Provider The patient is a 84-year-old female with a past medical history including hypertension, osteoporosis, GERD, DJD, occipital neuralgia and TMJ dislocation. She presents to the emergency department with nausea, vomiting and generalized weakness, and was found to have uncontrolled hypertension in the ED with heart rate up to 130 and blood pressure in the 180s over 110s. Work-up also included urinalysis which was positive for UTI. Principal Diagnosis UTI Discharge Exam Constitutional WD/WN, vitals as above + frail appearing, + in distress and + lethargic Eyes EOM intact bilaterally; no conjunctival abnormality ENMT external ear and nose normal, oropharynx normal Neck trachea midline, no thyromegaly normal visual inspection Respiratory normal respiratory effort, lungs clear to auscultation no respiratory distress Cardiovascular Rate/Rhythm: regular rhythm and + tachycardic Gastrointestinal (Abdomen) Inspection/Auscultation: abdomen normal to inspection; abdomen not distended Musculoskeletal no cyanosis or clubbing, extremities motor strength 5/5 Skin no rashes, warm and dry Neurologic moves all extremities; + not awake Psychiatric Orientation: + not alert, + not oriented to person and + uncooperative Discharge Data Allergies Allergy/AdvReac Type Severity Reaction Status Date / Time Sulfa (Sulfonamide Allergy Unknown told so Verified 12/02/19 18:19 Antibiotics) many years ago, ? remember Consultations 12/02/19 19:08 ED Decision to Admit Stat 12/02/19 22:32 Consult Case Management - Discharge Planning Routine Ordered Studies 12/02/19 16:42 CT abd pelvis IV con only Stat Hospital Course (1) Urinary tract infection: UA on 12/02 indicated infection - Urine culture grew oreilly-sensitive E. coli. Discharged on 5 additional days of cefdinir. (2) Vomiting: Patient presented to the emergency department with nausea and vomiting. CT of abdomen pelvis was negative for acute findings but did show some mild pancreatic duct dilatation with normal laboratories. - Son reports she hasn't eaten well for weeks & maybe months. - After getting abx for 24 hours, she was awake, alert, pleasant, and seemed to have normal intake. No further nausea or vomiting. Possibly her poor appetite is an aspect of stress/depression from her home life. Can follow up outpatient. (3) Weakness: Per family, she has been declining for some time at home. - However, once she felt better, she worked with PT/OT. She did very well and was recommended by them to go home with walker. She will get home PT. (4) Uncontrolled hypertension: Blood pressure was as high as 220/130 in the ED. This is likely due to rebound hypertension from not taking her home meds (of which clonidine is one). - After 24 hours, her BP was very well-controlled with it generally being ~140/85. In the discharge paperwork, I encouraged her to check her BPs once per day and to follow up with her PCP because her office visit BPs seem well-controlled overall. (5) Depression: Has significant life stressors at present; however, she seemed to be in fairly good spirits to me. She was in the room laughing and chatting with her daughter. - Continue home bupropion, clonazepam, and divalproex (6) Anxiety: See above (7) DVT prophylaxis: Heparin 5,000 units Q12h Total Time Total Time Spent Total Time Spent (In Minutes): 35 Discharge Plan Discharge Items Patient Disposition: Home - Home Health Services Reason For Visit: UTI,NAUSEA,VOMITING Discharge Diagnosis: Urinary tract infection Activity: Resume your previous activity Non-emergency contact: Primary Care Provider Call non-emergency contact if: your symptoms worsen and your temperature is above 101 Follow-up/Referrals: Kofi Dumont MD [Primary Care Provider] - 12/11/19 10:00 am Diet: Regular Addtl Attending Provider Instructions: You were admitted with confusion, nausea, and vomiting. This was caused by a urinary tract infection. In 2 days with antibiotics, you were doing a lot better and were up and walking around and feeling well. We are discharging you with another 5 days of antibiotics for a total of a week long course. Please take the antibiotic tonight before bedtime as the first dose, then 2 times per day after that. Your blood pressure was high in the hospital. This is tough to know what to do with because at your office visits, your blood pressure is sometimes low-normal (105/70 at the last visit) to high-normal (155/90). Please check your blood pressure one time per day at home and take this to Dr. Dumont's office to see if you need to start or adjust your blood pressure medications. Pending Studies at Discharge: No Stand-Alone Forms: My [facility], Smoking Cessation Medications and DC Order Prescriptions: New cefdinir 300 mg capsule 300 mg PO BID 5 Days Qty: 11 RF: 0 Continued oxybutynin chloride 10 mg tablet extended release 24hr 10 mg PO QAM Qty: 90 RF: 0 clonazepam 0.5 mg tablet 0.5 mg PO BID RF: 0 lidocaine [Lidoderm] 5 % adhesive patch,medicated 1 patch TOP DAILY PRN (Reason: pain) Qty: 15 RF: 0 divalproex 250 mg tablet,delayed release (DR/EC) 250 mg PO HS RF: 0 clonidine HCl 0.2 mg tablet 0.2 mg PO HS RF: 0 bupropion HCl 100 mg tablet sustained-release 12 hr 100 mg PO DAILY RF: 0 alendronate 70 mg tablet 70 mg PO WK RF: 0 Discharge Orders: Discharge Order (Routine); Ordered 12/04/19 Ordered By: Xu Barba Admission Data Admit Date/Time: 12/04/19 10:40 Attending Provider: Xu Barba Admit Provider: Harsha Zafar Primary Care Provider: Kofi Dumont Other Providers: Xu Barba Coding Level of Care Code D/C Day Management >30 mins Diagnoses Urinary tract infection N39.0 Vomiting R11.2 Nausea presence: with nausea Vomiting Intractability: unspecified Vomiting type: unspecified Weakness R53.1 Uncontrolled hypertension I10 Depression F32.9 Anxiety F41.9 DVT prophylaxis Z29.9
== END 2019-12-04 18:07 | disposition home health service (06) | DRG 689 ==
LOC: 2N 16:10 → ED 16:10 → SUATTDRO 21:50 → 2N 22:22 → UNDODISIN 12-04 17:51

== ENCOUNTER 2023-06-04 16:57 | Inpatient (IN) ==
[2023-06-04] MEDS ORDERED: SODIUM CHLORIDE 0.9% 500 ML IV SCH (17:15)
--- NOTE | 2023-06-04 17:30 | Emergency Department Note ---
Impression & Plan Heat exhaustion, Elevated troponin ED Provider Note Provider: Raymond Pantoja MD DATE OF SERVICE: 06/04/2023 CHIEF COMPLAINT: Weak, lethargic HISTORY OF PRESENT ILLNESS: Patient is a 88-year-old female history of hypertension and osteoporosis presenting here today via ambulance after being fo und outside weak and lethargic. Patient evidently was doing some weeding at her ex-'s house and then became weak and went to the ground. She denies falling. States he was too weak to get up however and laid on the ground for an hour or 2 until neighbor saw her and called 911. Patient received about 600 mL of normal saline prior to arrival is having some improvement of her mentation now. She is much more awake than when EMS initially picked her up. Patient denies pain. States she did scrape her knees little bit trying to get up but again denies falling. No loss of conscious reported. Denies chest pain or shortness of breath. Denies nausea. States he feels quite thirsty. PAST MEDICAL HISTORY: As noted above MEDICATIONS: Reviewed home medications SOCIAL HISTORY: Lives by herself PHYSICAL EXAM: GENERAL: alert and oriented in no acute distress on stretcher fatigued in a ppearance and warm to the touch Head: normocephalic and atraumatic EYES: No injection, discharge or icterus. PERRL NECK: Trachea midline. Supple. ENT: Mucous membranes pink however dry. LUNGS: Airway patent. No retractions. Breath sounds clear with good air entry bilaterally. HEART: Regular rate and rhythm. No chest wall tenderness ABDOMEN: Soft and non-tender, without guarding or rebound. SKIN: Acyanotic, warm, dry, without rashes EXTREMITIES: Without swelling, tenderness or deformity other than some slight abrasion to the bilateral knees. No significant bony tenderness noted. NEUROLOGICAL: No focal deficits. No aphasia. No facial droop or slurred speech. Normal strength and tone in the extremities. Sensation to gross touch normal. EK bpm sinus tachycardia. No PVC or PAC. No acute ST segment elevation or depression with a QTc of 485. CONTINUOUS CARDIAC MONITORING: was ordered and showed a heart rate of 80s-110s bpm in sinus tachycardia to normal sinus rhythm Patient's laboratory studies and imaging reviewed. Differential includes Infection, dehydration, metabolic abnormality, hypo/hyperglycemia, electrolyte disturbance, anemia, hypoxia, cardiac sources, intracerebral event, toxicologic, neurologic, as well as other pathologies. IMPRESSION/MEDICAL DECISION MAKING: Patient without focal neurological deficit. Temperature significantly elevated. Seems heat related. Given some IV fluids and already improving. Some additional. EKG and basic labs obtained. Unfortunately was stuck outside for several hours in the very warm weather today. No report of significant pain. Some slight abrasions knees but denies falling and no significant bony tendernes s. Doubt fracture. Again doubt a CVA and without a trauma history do not feel we need CT imaging of the head. Patient temperature elevated and seems consistent with heat exhaustion. Cooling applied. Patient is short of states she feels cold but core temperature still elevated. Blood without anemia leukocytosis. Doubt infectious etiology. CK normal but troponin is elevated at 236. Denies chest pain. EKG without STEMI. Question demand given her dehydration and exposure today to the heat. Given again some gentle IV hydration. Given aspirin. Will bring in to the hospital for observation given this finding. DIAGNOSIS: Heat exhaustion, elevated troponin DISPOSITION: Hospitalist will evaluate Patient was agreeable with this plan. Past Med/Surg History Medical History (Updated 06/04/23 @ 21:09 by Lei Leung PA-C) Anxiety Chronic neck pain Depression Dislocated mandible H/O Dupuytrens contracture Effusion, left knee History of skin cancer Left knee DJD Osteoarthritis Osteoporosis Osteoporosis Overactive bladder Surgical History History of cataract surgery History of colonoscopy History of Mohs surgery for squamous cell carcinoma in situ of skin History of tonsillectomy Family History Sister Breast cancer Denies family history of Ovarian cancer Prostate cancer Myocardial infarction Colorectal cancer Social History Smoking Status: Never smoker Second Hand Exposure: No; Do You Dip or Chew Tobacco: No; Hx Alcohol Use: No Hx Substance Use: No Preferred Language: Faroese Communication Ability: Effective Data Transcriber Required: No Beliefs That Will Affect Care: None marital status: Current Living Situation: Alone Current Living Situation Comment: lives current occupational status: retired Other Information That Helps Us Care for You: No Feels Safe at Home: Yes Safety Concerns: Feels Safe At This Time Childhood Exposure to Second-Hand Smoke: No caffeine: Yes Dental Care, Regularly: Yes Physical Activity Frequency: Does not Exercise Seatbelt Use: always Sunscreen Use: Yes Assistive Devices: Cane and Glasses Allergies Allergies Allergy/AdvReac Type Severity Reaction Status Date / Time Sulfa (Sulfonamide Allergy Unknown told so Verified 11/15/20 15:43 Antibiotics) many years ago, ? remember Home Meds Home Medications Medication Instructions Recorded Confirmed clonazepam 0.5 mg tablet 0.5 mg PO BID 07/25/19 06/04/23 alendronate 70 mg tablet 70 mg PO WK 12/02/19 06/04/23 bupropion HCl 100 mg tablet,12 hr 100 mg PO DAILY 12/02/19 06/04/23 sustained-release lamotrigine 25 mg tablet (Lamictal) See Rx Instructions .Route .COMPLEX 11/15/20 06/04/23 oxybutynin chloride 5 mg tablet 5 mg PO TID 11/15/20 06/04/23 ergocalciferol (vitamin D2) 1,250 50,000 unit PO WK 06/04/23 06/04/23 mcg (50,000 unit) capsule sertraline 25 mg tablet (Zoloft) 25 mg PO DAILY 06/04/23 06/04/23 Results & Data (ED) Vital Signs Vital Signs - 24 hr 06/04/23 17:21 06/04/23 17:10 06/04/23 17:10 Temperature 39.8 C H Temperature Source Rectal Pulse Rate 118 H 115 H Pulse Rate from SpO2 Sensor Pulse Rhythm Regular Respiratory Rate 24 Respiratory Effort / Characteristics Non-Labored Spontaneous Respiratory Depth Normal Blood Pressure 100/64 Blood Pressure Mean 76 Pulse Oximetry 91 91 Oxygen Delivery Method Room Air Room Air Oxygen Flow Rate Sepsis Recent Fever Within 48 Hours No Sepsis New/Unexplained Change in Mental Status No Sepsis Action Taken by Nursing No Action Required Oxygen Flow Rate - Titration 3 Pulse Oximetry Post Tiitration 95 06/04/23 17:09 06/04/23 17:10 06/04/23 17:20 Temperature Temperature Source Pulse Rate 114 H 117 H 105 H Pulse Rate from SpO2 Sensor 117 H 118 H 107 H Pulse Rhythm Respiratory Rate 35 H 31 H 25 H Respiratory Effort / Characteristics Respiratory Depth Blood Pressure Blood Pressure Mean Pulse Oximetry 90 90 92 Oxygen Delivery Method Oxygen Flow Rate Sepsis Recent Fever Within 48 Hours Sepsis New/Unexplained Change in Mental Status Sepsis Action Taken by Nursing Oxygen Flow Rate - Titration Pulse Oximetry Post Tiitration 06/04/23 17:30 06/04/23 17:40 06/04/23 17:50 Temperature Temperature Source Pulse Rate 105 H 110 H 98 H Pulse Rate from SpO2 Sensor 104 H Pulse Rhythm Respiratory Rate 28 H 21 30 H Respiratory Effort / Characteristics Respiratory Depth Blood Pressure Blood Pressure Mean Pulse Oximetry 94 Oxygen Delivery Method Oxygen Flow Rate Sepsis Recent Fever Within 48 Hours Sepsis New/Unexplained Change in Mental Status Sepsis Action Taken by Nursing Oxygen Flow Rate - Titration Pulse Oximetry Post Tiitration 06/04/23 18:00 06/04/23 18:10 06/04/23 18:22 Temperature Temperature Source Pulse Rate 92 H 89 93 H Pulse Rate from SpO2 Sensor 93 H Pulse Rhythm Respiratory Rate 21 14 13 Respiratory Effort / Characteristics Respiratory Depth Blood Pressure Blood Pressure Mean Pulse Oximetry 96 Oxygen Delivery Method Oxygen Flow Rate Sepsis Recent Fever Within 48 Hours Sepsis New/Unexplained Change in Mental Status Sepsis Action Taken by Nursing Oxygen Flow Rate - Titration Pulse Oximetry Post Tiitration 06/04/23 18:23 06/04/23 18:23 06/04/23 19:14 Temperature 37.7 C H Temperature Source Pulse Rate 93 H 96 H Pulse Rate from SpO2 Sensor 93 H Pulse Rhythm Respiratory Rate 19 22 Respiratory Effort / Characteristics Respiratory Depth Blood Pressure 149/88 H Blood Pressure Mean 108 Pulse Oximetry 97 96 Oxygen Delivery Method Nasal Cannula Oxygen Flow Rate 1 Sepsis Recent Fever Within 48 Hours Sepsis New/Unexplained Change in Mental Status Sepsis Action Taken by Nursing Oxygen Flow Rate - Titration Pulse Oximetry Post Tiitration 06/04/23 19:14 06/04/23 20:01 Temperature Temperature Source Pulse Rate 92 H 78 Pulse Rate from SpO2 Sensor 91 H Pulse Rhythm Respiratory Rate 15 21 Respiratory Effort / Characteristics Respiratory Depth Blood Pressure 168/98 H 144/98 H Blood Pressure Mean 121 113 Pulse Oximetry 96 94 Oxygen Delivery Method Nasal Cannula Nasal Cannula Oxygen Flow Rate 1 1 Sepsis Recent Fever Within 48 Hours Sepsis New/Unexplained Change in Mental Status Sepsis Action Taken by Nursing Oxygen Flow Rate - Titration Pulse Oximetry Post Tiitration Laboratory Data 06/04/23 17:18 06/04/23 17:18 Lab Results 06/04/23 06/04/23 06/04/23 Range/Units 17:18 17:18 17:18 WBC 9.76 (4.8-10.8) K/ul RBC 4.16 L (4.20-5.40) M/uL Hgb 12.6 (12.0-16.0) g/dl Hct 36.9 L (37.0-47.0) % MCV 88.7 (80.0-100.0) fL MCH 30.3 (25.0-34.0) pg MCHC 34.1 (32.0-36.0) g/dL RDW Std Deviation 45.9 (36.4-46.3) fL RDW Coeff of Ju 14.3 (11.5-14.5) % Plt Count 145 (130-400) K/uL MPV 10.7 (9.4-12.4) fL Immature Gran % (Auto) 0.7 % Neut % (Auto) 86.9 % Lymph % (Auto) 5.6 % Harnett % (Auto) 6.4 % Eos % (Auto) 0.2 % Baso % (Auto) 0.2 % Neut # (Auto) 8.48 H (1.40-6.50) K/uL Lymph # (Auto) 0.55 L (1.2-3.4) K/uL Harnett # (Auto) 0.62 H (0.11-0.59) K/uL Eos # (Auto) 0.02 (0-0.50) K/uL Baso # (Auto) 0.02 (0-0.2) K/uL Immature Gran # (Auto) 0.07 (0.01-0.20) K/uL Sodium 140 (136-145) mmol/L Potassium 3.5 (3.5-5.1) mmol/L Chloride 108 H (98-107) mmol/L Carbon Dioxide 19 L (21-32) mmol/L Anion Gap 13 H (3-11) BUN 17 (6-23) mg/dl Creatinine 0.91 (0.6-1.2) mg/dl Est Cr Clr Drug Dosing 41.0 ml/min Est GFR ( Amer) 65.3 ml/min Est GFR (Non-Af Amer) 56.3 ml/min BUN/Creatinine Ratio 18.7 (10-20) Glucose 129 H (70-99(Fasting)) mg/dl Calcium 8.7 (8.6-10.3) mg/dl Magnesium 2.0 (1.7-2.4) mg/dl Total Bilirubin 0.8 (0.2-1.0) mg/dl AST 20 (13-39) U/L ALT 11 (7-52) U/L Alkaline Phosphatase 40 (34-104) U/L Total Creatine Kinase 153 (26-192) U/L Troponin I High Sens 236.4 H* (0-14) pg/ml Total Protein 6.7 (6.0-8.3) gm/dl Albumin 4.3 (3.4-5.0) gm/dl Globulin 2.4 L (2.5-4.0) gm/dl Albumin/Globulin Ratio 1.8 (0.9-2) TSH 1.001 (0.300-4.500) uIu/ml SARS-CoV-2, RNA, NAAT (NEGATIVE) 06/04/23 Range/Units 17:36 WBC (4.8-10.8) K/ul RBC (4.20-5.40) M/uL Hgb (12.0-16.0) g/dl Hct (37.0-47.0) % MCV (80.0-100.0) fL MCH (25.0-34.0) pg MCHC (32.0-36.0) g/dL RDW Std Deviation (36.4-46.3) fL RDW Coeff of Ju (11.5-14.5) % Plt Count (130-400) K/uL MPV (9.4-12.4) fL Immature Gran % (Auto) % Neut % (Auto) % Lymph % (Auto) % [place]ett % (Auto) % Eos % (Auto) % Baso % (Auto) % Neut # (Auto) (1.40-6.50) K/uL Lymph # (Auto) (1.2-3.4) K/uL [place]ett # (Auto) (0.11-0.59) K/uL Eos # (Auto) (0-0.50) K/uL Baso # (Auto) (0-0.2) K/uL Immature Gran # (Auto) (0.01-0.20) K/uL Sodium (136-145) mmol/L Potassium (3.5-5.1) mmol/L Chloride (98-107) mmol/L Carbon Dioxide (21-32) mmol/L Anion Gap (3-11) BUN (6-23) mg/dl Creatinine (0.6-1.2) mg/dl Est Cr Clr Drug Dosing ml/min Est GFR ( Amer) ml/min Est GFR (Non-Af Amer) ml/min BUN/Creatinine Ratio (10-20) Glucose (70-99(Fasting)) mg/dl Calcium (8.6-10.3) mg/dl Magnesium (1.7-2.4) mg/dl Total Bilirubin (0.2-1.0) mg/dl AST (13-39) U/L ALT (7-52) U/L Alkaline Phosphatase (34-104) U/L Total Creatine Kinase (26-192) U/L Troponin I High Sens (0-14) pg/ml Total Protein (6.0-8.3) gm/dl Albumin (3.4-5.0) gm/dl Globulin (2.5-4.0) gm/dl Albumin/Globulin Ratio (0.9-2) TSH (0.300-4.500) uIu/ml SARS-CoV-2, RNA, NAAT NEGATIVE (NEGATIVE) Administered Medications Lactated Ringer's (Lr) 1,000 mls @ 80 mls/hr IV .[id number] [facility] Stop: 06/05/23 09:14 Last Admin: 06/04/23 21:05 Dose: 80 mls/hr Documented By: ESTELA Discontinued Medications Aspirin (Aspirin 81 Mg Chew) 324 mg PO NOW STA Stop: 06/04/23 18:57 Last Admin: 06/04/23 19:12 Dose: 324 mg Documented By: ESTELA Sodium Chloride (Nss) 500 mls @ 999 mls/hr IV .Q31M SETFAN Stop: 06/04/23 17:45 Last Infusion: 06/04/23 18:26 Dose: 0 mls/hr Documented By: Admin: 06/04/23 17:30 Dose: 999 mls/hr Documented By: HS Oxybutynin Chloride (Oxybutynin Chloride 5 Mg Tab) 5 mg PO ONE ONE Stop: 06/04/23 21:16 Last Admin: 06/04/23 21:58 Dose: 5 mg Documented By: ESTELA Imaging Data Radiologist's Impression: Chest X-Ray 06/04/23 17:10 SINGLE VIEW CHEST CLINICAL HISTORY: Generalized weakness. FINDINGS: An AP, portable, upright chest radiograph is compared to study dated 12/02/2019. The cardiomediastinal silhouette is top normal for projection noting atherosclerotic calcification of the thoracic aorta. Chronic interstitial thickening is similar to previous. There is elevation of the left hemidiaphragm with mild bibasilar scarring/atelectasis. No airspace consolidation or large pleural effusion is identified. No pneumothorax is seen. The skeletal structures are osteopenic. The bony thorax is grossly intact. Degenerative change and scoliosis is seen in the spine. Arthritic change is noted in the shoulders. IMPRESSION: No acute cardiopulmonary abnormality. ACT 112: Negative or not required by law. Electronically signed by: Jason Tejada M.D. 06/04/2023 5:56 PM Discharge Plan Visit Data Chief Complaint: Lethargic ED Provider: Raymond Pantoja Discharge Problem: Heat exhaustion, Elevated troponin Patient Disposition: Admitted As Inpatient Discharge Instructions Interventions: ED Discharge Assessment Last Done: 06/04/23 21:06 Heat exhaustion Qualifiers: Encounter type: initial encounter Qualified Code(s): T67.5XXA - Heat exhaustion, unspecified, initial encounter
[2023-06-04 17:38] LABS: Basophils # (auto) 0.02 K/uL (0-0.2); Basophils % (auto) 0.2 %; Eosinophils # (auto) 0.02 K/uL (0-0.50); Eosinophils % (auto) 0.2 %; Hematocrit (blood only) 36.9 % (37.0-47.0); Hemoglobin 12.6 g/dl (12.0-16.0); Immature Granulocytes # (auto) 0.07 K/uL (0.01-0.20); Immature Granulocytes % (auto) 0.7 %; Lymphocytes # (auto) 0.55 K/uL (1.2-3.4); Lymphocytes % (auto) 5.6 %; Mean Corpuscular Hemoglobin 30.3 pg (25.0-34.0); Mean Corpuscular Hgb Conc 34.1 g/dL (32.0-36.0); Mean Corpuscular Volume 88.7 fL (80.0-100.0); Mean Platelet Volume 10.7 fL (9.4-12.4); Monocytes # (auto) 0.62 K/uL (0.11-0.59); Monocytes % (auto) 6.4 %; Neutrophils # (auto) 8.48 K/uL (1.40-6.50); Neutrophils % (auto) 86.9 %; Platelet Count 145 K/uL (130-400); RDW Coefficient of Variation 14.3 % (11.5-14.5); RDW Standard Deviation 45.9 fL (36.4-46.3); Red Blood Count 4.16 M/uL (4.20-5.40); White Blood Count 9.76 K/ul (4.8-10.8)
--- NOTE | 2023-06-04 17:57 | XRay Report ---
SINGLE VIEW CHEST CLINICAL HISTORY: Generalized weakness. FINDINGS: An AP, portable, upright chest radiograph is compared to study dated 12/02/2019. The cardiom ediastinal silhouette is top normal for projection noting atherosclerotic calcification of the thorac ic aorta. Chronic interstitial thickening is similar to previous. There is elevation of the left mitra diaphragm with mild bibasilar scarring/atelectasis. No airspace consolidation or large pleural effusi on is identified. No pneumothorax is seen. The skeletal structures are osteopenic. The bony thorax is grossly intact. Degenerative change and scoliosis is seen in the spine. Arthritic change is noted in the shoulders. IMPRESSION: No acute cardiopulmonary abnormality. ACT 112: Negative or not required by law. Electronically signed by: Jason Tejada M.D. 06/04/2023 5:56 PM
[2023-06-04 18:05] LABS: Albumin Globulin Ratio 1.8 (0.9-2); Albumin Level 4.3 gm/dl (3.4-5.0); BUN Creatinine Ratio 18.7 (10-20); Bilirubin,Total 0.8 mg/dl (0.2-1.0); Calcium 8.7 mg/dl (8.6-10.3); Est GFR (African American) 65.3 ml/min; Est GFR (Non-African American) 56.3 ml/min; Globulin 2.4 gm/dl (2.5-4.0); Potassium 3.5 mmol/L (3.5-5.1); Total Protein 6.7 gm/dl (6.0-8.3)
[2023-06-04 18:16] LABS: Troponin I High Sensitivity 236.4 pg/ml (0-14)
[2023-06-04] MEDS ORDERED: ASPIRIN 81 MG CHEW PO STA (18:56)
--- NOTE | 2023-06-04 20:22 | History & Physical Report ---
Date of Service June 04, 2023 Assessment & Plan (1) Hyperthermia: Plan: -Admit to the PCU on tele -Currently stable and neurologically intact -Patient was found to be lethargic and hyperthermic with a max temp of 39.8C this afternoon after being unable to get herself off the ground while doing yard work -The patient denies a fall or other symptoms prior to starting yard work -Temp is now 37C after resuscitation in the ED -Will hold acetaminophen and ibuprofen tonight to prevent further temperature regulating complications -Will continue light IV LR overnight -CK was WNL -BL SCD's for DVT PPX -HH diet -AM CBC, CMP (2) Elevated troponin: Plan: -Initial high sen trop elevated at 236 -Patient has been asymptomatic and without acute ST segment or T-wave changes -Likely due to demand from being on the ground, dehydration, and hyperthermia -Will obtain STAT high sen trop and continue to monitor q6h overnight -Continue to monitor on tele for now (3) High anion gap metabolic acidosis: Plan: -AG noted to be 13 with bicarb of 19 -Likely due to dehydration, no lactate ordered in the ED -Will obtain STAT lactate with repeat high sen trop -Clinically stable and completely alert/oriented -Continue to monitor (4) Anxiety: Plan: -Continue Wellbutrin and sertraline (5) Depression: Plan: -Continue Wellbutrin and Sertraline (6) Hypertension: Plan: -Stable -Not on antihypertensives -Contionue to monitor (7) Acid reflux disease: Plan: -Prn famotidine (8) Chronic constipation: Plan: -No BM today -Will order prn suppositories as requested by patient Plan The patient was discussed with Dr. hTompson at the time of the admission History of Present Illness Chief Complaint: Unresponsive Primary Care Provider: NO PCP Kaur Rand) is an 88 year old female with a PMH significant for osteoporosis, depression, and anxiety who presented to the [facility] ED via EMS on 06/04 after being found down, unresponsive outside, by a bystander. She was noted to be lethargic by EMS and was placed on a NRB and given 600 mL NSS. In the ED the patient was noted to be more responsive to staff. She was noted to be hyperthermic at 39.8C but otherwise stable. Labs were significant for an AG of 13 with bicarb of 19, CK of 153, and initial high sen trop of 236. Chest xray was read as "No acute cardiopulmonary abnormality.". Prior to admission the patient was given 324 mg PO Aspirin, 500 mL of NSS, and ice packs were placed at in the groin and axilla. At the time of the exam the patient was sitting in bed in no acute distress. She states that she remembers everything from earlier today. She was in her normal state of health this am and decided to do some weeding around her ex- husbands driveway. She states that she was unable to pull herself back up off the ground when she was ready and was on the ground for approximately 30 min until the bystander found her. She denies falling, losing consciousness, chest pain, heart palpitations, SOB, cough, recent fever or chills prior to today, abd pain, nausea, vomiting, diarrhea, dysuria, hematuria, melena, and LE swelling. She states that she feels much improved prior to ED arrival and is now cold. We discussed code status, the patient wishes to be a DNR/DNI and for her Daughter/POA (Tana) to make medical decisions for her if she cannot make them herself. Please refer to Dr. Thompson's attestation for any changes to the treatment plan. Allergies Allergy/AdvReac Type Severity Reaction Status Date / Time Sulfa (Sulfonamide Allergy Unknown told so Verified 11/15/20 15:43 Antibiotics) many years ago, ? remember Home Medications Medication Instructions Recorded Confirmed Type clonazepam 0.5 mg tablet 0.5 mg PO BID 07/25/19 06/04/23 History alendronate 70 mg tablet 70 mg PO WK 12/02/19 06/04/23 History bupropion HCl 100 mg tablet,12 hr 100 mg PO DAILY 12/02/19 06/04/23 History sustained-release lamotrigine 25 mg tablet (Lamictal) See Rx Instructions .Route .COMPLEX 11/15/20 06/04/23 History oxybutynin chloride 5 mg tablet 5 mg PO TID 11/15/20 06/04/23 History ergocalciferol (vitamin D2) 1,250 50,000 unit PO WK 06/04/23 06/04/23 History mcg (50,000 unit) capsule sertraline 25 mg tablet (Zoloft) 25 mg PO DAILY 06/04/23 06/04/23 History Past Med/Surg History Medical History (Updated 06/04/23 @ 21:09 by Lei Leung PA-C) Anxiety Chronic neck pain Depression Dislocated mandible H/O Dupuytrens contracture Effusion, left knee History of skin cancer Left knee DJD Osteoarthritis Osteoporosis Osteoporosis Overactive bladder Surgical History History of cataract surgery History of colonoscopy History of Mohs surgery for squamous cell carcinoma in situ of skin History of tonsillectomy Family History Sister Breast cancer Denies family history of Ovarian cancer Prostate cancer Myocardial infarction Colorectal cancer Social History Smoking Status: Never smoker Second Hand Exposure: No; Do You Dip or Chew Tobacco: No; Hx Alcohol Use: No Hx Substance Use: No Preferred Language: Azeri Communication Ability: Effective Circulation Crew Leader Required: No Beliefs That Will Affect Care: None marital status: Current Living Situation: Alone Current Living Situation Comment: lives current occupational status: retired Other Information That Helps Us Care for You: No Feels Safe at Home: Yes Safety Concerns: Feels Safe At This Time Childhood Exposure to Second-Hand Smoke: No caffeine: Yes Dental Care, Regularly: Yes Physical Activity Frequency: Does not Exercise Seatbelt Use: always Sunscreen Use: Yes Assistive Devices: Cane and Walker Physical Exam Physical Exam: Physical Exam: General: In no acute distress, stated age, well-nourished, non-toxic appearing HEENT: Normocephalic, atraumatic, no scleral icterus, pupils around round, symmetrical, and reactive to light, dry mucus membranes, trachea midline, no thyromegaly Chest/Pulm: No respiratory distress, symmetrical chest expansion, clear breath sounds throughout Cardiac: RRR, no murmurs noted Abdomen: Negative for ascites and bruising, normoactive bowel sounds, soft, non-tender to palpation throughout Musculoskeletal: Symmetrical and without signs of acute trauma, upper and lower extremities with full ROM, no atrophy, spasticity, or flaccidity Extremities: Radial, dorsalis pedis, and posterior tibial pulses are intact and symmetrical, no edema noted in the BL LE's Skin: Warm, dry, no rashes , lesions, or scars noted Neuro: Alert and oriented to person, place, month, no focal defects, CN II-XI I tested and intact, no tremors noted Psych: No acute distress, calm and cooperative during the exam Results & Data Results & Data Vital Signs (Past 12 Hours) Vital Signs Temp Pulse Resp BP Pulse Ox O2 Del Method O2 Flow Rate 06/04/23 19:14 96 H 22 96 Nasal Cannula 1 06/04/23 18:23 93 H 19 97 06/04/23 18:23 37.7 C H 149/88 H 06/04/23 18:22 93 H 13 96 06/04/23 18:10 89 14 06/04/23 18:00 92 H 21 06/04/23 17:50 98 H 30 H 06/04/23 17:40 110 H 21 06/04/23 17:30 105 H 28 H 94 06/04/23 17:20 105 H 25 H 92 06/04/23 17:10 117 H 31 H 90 06/04/23 17:09 114 H 35 H 90 06/04/23 17:10 91 Room Air 06/04/23 17:10 39.8 C H 115 H 24 100/64 91 Room Air 06/04/23 17:21 118 H Laboratory Results Abnormal lab results 06/04/23 06/04/23 Range/Units 17:18 17:18 RBC 4.16 L (4.20-5.40) M/uL Hct 36.9 L (37.0-47.0) % Neut # (Auto) 8.48 H (1.40-6.50) K/uL Lymph # (Auto) 0.55 L (1.2-3.4) K/uL [place] # (Auto) 0.62 H (0.11-0.59) K/uL Chloride 108 H (98-107) mmol/L Carbon Dioxide 19 L (21-32) mmol/L Anion Gap 13 H (3-11) Glucose 129 H (70-99(Fasting)) mg/dl Troponin I High Sens 236.4 H* (0-14) pg/ml Globulin 2.4 L (2.5-4.0) gm/dl Diagnostic Findings Chest X-Ray 06/04/23 17:10 SINGLE VIEW CHEST CLINICAL HISTORY: Generalized weakness. FINDINGS: An AP, portable, upright chest radiograph is compared to study dated 12/02/2019. The cardiomediastinal silhouette is top normal for projection noting atherosclerotic calcification of the thoracic aorta. Chronic interstitial thickening is similar to previous. There is elevation of the left hemidiaphragm with mild bibasilar scarring/atelectasis. No airspace consolidation or large pleural effusion is identified. No pneumothorax is seen. The skeletal structures are osteopenic. The bony thorax is grossly intact. Degenerative change and scoliosis is seen in the spine. Arthritic change is noted in the shoulders. IMPRESSION: No acute cardiopulmonary abnormality. ACT 112: Negative or not required by law. Electronically signed by: Jason Tejada M.D. 06/04/2023 5:56 PM ECG Additional Comments: Sinus tachycardia Possible Left atrial enlargement Cannot rule out Anterior infarct , age undetermined Abnormal ECG When compared with ECG of 15-NOV-2020 14:23, Minimal criteria for Anterior infarct are now Present Code Status & VTE Plan Code Status DNR/DNI VTE Prophylaxis Plan VTE Prophylaxis will be ordered: Yes Supervising Physician Co-Signing Physician Notes Patient seen and examined, chart reviewed, case discussed with SUKHJINDER Leung and I agree with the assessment and plan as documented above. In brief, patient is an 88-year-old female presenting with hypothermia, heat exhaustion. This afternoon she was weeding outside. She became lethargic and unable to stand. EMS was contacted and patient was found to be lethargic. She was placed on supplemental oxygen. Found to be hypothermic with a core temperature of 39.8. She was brought to the emergency room where she was cooled with ice packs in the axilla and groin. Presently with no complaints. She denies chest pain, cough, shortness of breath. Denies recent illness otherwise. On exam patient with improved temperature. Vital signs stable. Adequate oxygenation on room air Skinwarm, intact, no rashes HEENTnormocephalic, atraumatic, pupils equal and reactive to light, mucous membranes slightly dry Heart+ S1, S2, regular Lungsclear to auscultation anteriorly, no rales/rhonchi/wheezes Abdomenpositive bowel sounds, soft, nontender, nondistended Extremities, warm, well-perfused, 2+ palpable pulses Neurogrossly nonfocal. Patient conversant, oriented, moving all extremities with equal strength Labs and images results reviewed. CK is within normal limits. She does have mild elevation of anion gap at 13. Elevation of troponin Assessment/Plan Hyperthermia secondary to heat exposure. Improved core temperature now Continue to monitor Trend troponin Repeat chemistry in AM Remainder as above PG Care Time/CCT Total # of Minutes Spent Total Time Spent with Patient: Total time spent is greater than 50% in coordination of care (as documented) at patient's floor/unit and/or counseling patient: C[place] [address] INT INP/OBS CARE 2/55MIN Patient Type Established Medical Decision Making Moderate Complexity Diagnoses Hyperthermia R50.9 Elevated troponin R77.8 High anion gap metabolic acidosis E87.29 Anxiety F41.9 Depression F32.9 Hypertension I10 Acid reflux disease K21.9 Chronic constipation K59.09
[2023-06-04] MEDS ORDERED: LACTATED RINGER'S 1,000 ML IV SCH (20:45)
[2023-06-04] MEDS ORDERED: FAMOTIDINE 20 MG TAB PO PRN (21:06)
[2023-06-04] MEDS ORDERED: oxyBUTYnin chloride 5 MG TAB PO ONE (21:15)
[2023-06-05 00:28] LABS: Appearance Urine Clear (Clear); Bacteria Urine Automated Negative (Negative); Bilirubin Urine Negative (Negative); Blood Urine 1+ (Negative); Cast Urine Automated 0 /lpf (0-5); Color Urine Yellow; Epithelial Cell Urine Auto 0-5 /lpf (0-5); Glucose Urine UA Negative (Negative); Ketones Urine Negative (Negative); Leukocyte Esterase Urine Negative (Negative); Nitrite Urine Negative (Negative); Protein Urine Negative (Negative); RBC Urine Automated 0-4 /hpf (0-4); Specific Gravity Urine 1.007 (1.000-1.030); Urobilinogen Urine Negative (Negative); pH Urine 7.5 (4.5-7.5)
[2023-06-05 06:33] LABS: Basophils # (auto) 0.03 K/uL (0-0.2); Basophils % (auto) 0.4 %; Eosinophils # (auto) 0.07 K/uL (0-0.50); Eosinophils % (auto) 0.9 %; Hematocrit (blood only) 34.9 % (37.0-47.0); Immature Granulocytes # (auto) 0.02 K/uL (0.01-0.20); Immature Granulocytes % (auto) 0.2 %; Lymphocytes # (auto) 1.56 K/uL (1.2-3.4); Lymphocytes % (auto) 19.4 %; Mean Corpuscular Hemoglobin 30.2 pg (25.0-34.0); Mean Corpuscular Hgb Conc 34.4 g/dL (32.0-36.0); Mean Corpuscular Volume 87.9 fL (80.0-100.0); Mean Platelet Volume 10.6 fL (9.4-12.4); Monocytes # (auto) 0.85 K/uL (0.11-0.59); Monocytes % (auto) 10.5 %; Neutrophils # (auto) 5.53 K/uL (1.40-6.50); Neutrophils % (auto) 68.6 %; Platelet Count 151 K/uL (130-400); RDW Standard Deviation 45.1 fL (36.4-46.3); Red Blood Count 3.97 M/uL (4.20-5.40); White Blood Count 8.06 K/ul (4.8-10.8)
[2023-06-05 06:42] LABS: Albumin Globulin Ratio 1.7 (0.9-2); Albumin Level 3.8 gm/dl (3.4-5.0); BUN Creatinine Ratio 17.4 (10-20); Calcium 8.3 mg/dl (8.6-10.3); Creatinine Clr Calc Pharmacy 54.1 ml/min; Est GFR (African American) 90.1 ml/min; Est GFR (Non-African American) 77.7 ml/min; Globulin 2.3 gm/dl (2.5-4.0); Potassium 3.3 mmol/L (3.5-5.1); Total Protein 6.1 gm/dl (6.0-8.3)
[2023-06-05 06:59] LABS: Troponin I High Sensitivity 725.3 pg/ml (0-14)
[2023-06-05] MEDS: oxyBUTYnin chloride 5 MG TAB PO SCH ×3 (07:39→20:07)
[2023-06-05] MEDS: SERTRALINE HCL 50 MG TABLET PO SCH (07:40)
[2023-06-05] MEDS: buPROPion SR 100 MG TABCR PO SCH (07:40)
--- NOTE | 2023-06-05 08:39 | Hospitalist Progress Note ---
Date of Service June 05, 2023 Assessment & Plan (1) Hyperthermia: Plan: - concern for heat exposure -Currently stable and neurologically intact -Patient was found to be lethargic and hyperthermic with a max temp of 39.8C this afternoon after being unable to get herself off the ground while doing yard workquestion exposure -The patient denies a fall or other symptoms prior to starting yard work -Temp is now 37C after resuscitation in the ED -CK was WNL troponin if elevated and trending upward -BL SCD's for DVT PPX -HH diet hypokalemia will replete (2) Elevated troponin: Plan: -Initial high sen trop elevated at [phone] -Patient has been asymptomatic and without acute ST segment or T-wave changes -Likely due to demand from being on the ground, dehydration, and hyperthermia Pending echocardiogram (3) High anion gap metabolic acidosis: Plan: -resolved (4) Depression: Plan: -Continue Wellbutrin and Sertraline (5) Chronic constipation: Plan: -No BM today -Will order prn suppositories as requested by patient Admission and Anticipated Discharge Date Admission Date: June 04, 2023 Subjective Patient is pleasant has no complaints has no chest discomfort or shortness of breath Physical Exam Physical Exam: Awake and alert Card exam is regular with a systolic murmur Lungs are clear without wheezes or crackles Abdomen NABS soft and nontender Results & Data Results & Data Vital Signs (Past 12 Hours) Vital Signs Temp Pulse Pulse Resp BP BP Pulse Ox 06/05/23 07:18 98.1 F 69 18 132/62 92 06/05/23 03:40 97.7 F 73 19 122/66 93 06/05/23 00:35 74 06/04/23 22:30 97.9 F 84 19 163/96 H 93 06/04/23 21:00 75 20 155/92 H 94 06/04/23 21:15 06/04/23 20:48 98.8 F O2 Del Method O2 Flow Rate 06/05/23 07:18 Room Air 06/05/23 03:40 Room Air 06/05/23 00:35 06/04/23 22:30 Room Air 06/04/23 21:00 Room Air 06/04/23 21:15 Nasal Cannula 1 06/04/23 20:48 Laboratory Results Reviewed CBC reviewed chemistry PG Care Time/CCT Total # of Minutes Spent Total Time Spent with Patient: Total time spent is greater than 50% in coordination of care (as documented) at patient's floor/unit and/or counseling patient: Coding Level of Care Code 23399 SUB INP/OBS CARE 2/35MIN Diagnoses Hyperthermia R50.9 Elevated troponin R77.8 High anion gap metabolic acidosis E87.29 Depression F32.9 Chronic constipation K59.09
[2023-06-05] MEDS: POTASSIUM CHLORIDE CRTAB 20 MEQ TABCR PO SCH ×2 (09:24→20:06)
--- NOTE | 2023-06-05 17:05 | Electrocardiogram Report ---
Test Reason : Blood Pressure : / mmHG Vent. Rate : 113 BPM Atrial Rate : 113 BPM P-R Int : 142 ms QRS Dur : 078 ms QT Int : 354 ms P-R-T Axes : 061 019 031 degrees QTc Int : 485 ms Sinus tachycardia Possible Left atrial enlargement Cannot rule out Anterior infarct , age undetermined Abnormal ECG When compared with ECG of 15-NOV-2020 14:23, Minimal criteria for Anterior infarct are now Present Confirmed by Venkata Grewal ([id number]) on 06/05/2023 5:04:46 PM Referred By: REFERRED SELF Confirmed By:Venkata Grewal
--- NOTE | 2023-06-05 19:29 | XCELERA ---
[id number]
[2023-06-06] MEDS: POTASSIUM CHLORIDE CRTAB 20 MEQ TABCR PO SCH (07:36)
[2023-06-06] MEDS: buPROPion SR 100 MG TABCR PO SCH (07:36)
[2023-06-06] MEDS: SERTRALINE HCL 50 MG TABLET PO SCH (07:36)
[2023-06-06] MEDS: oxyBUTYnin chloride 5 MG TAB PO SCH ×3 (07:37→20:00)
[2023-06-06 07:39] LABS: Basophils # (auto) 0.04 K/uL (0-0.2); Basophils % (auto) 0.5 %; Eosinophils # (auto) 0.16 K/uL (0-0.50); Eosinophils % (auto) 2.2 %; Hematocrit (blood only) 38.3 % (37.0-47.0); Hemoglobin 13.1 g/dl (12.0-16.0); Immature Granulocytes # (auto) 0.05 K/uL (0.01-0.20); Immature Granulocytes % (auto) 0.7 %; Lymphocytes # (auto) 1.75 K/uL (1.2-3.4); Mean Corpuscular Hemoglobin 30.2 pg (25.0-34.0); Mean Corpuscular Hgb Conc 34.2 g/dL (32.0-36.0); Mean Corpuscular Volume 88.2 fL (80.0-100.0); Mean Platelet Volume 10.8 fL (9.4-12.4); Monocytes # (auto) 0.66 K/uL (0.11-0.59); Monocytes % (auto) 9.1 %; Neutrophils # (auto) 4.62 K/uL (1.40-6.50); Neutrophils % (auto) 63.5 %; Platelet Count 172 K/uL (130-400); RDW Coefficient of Variation 14.2 % (11.5-14.5); RDW Standard Deviation 46.5 fL (36.4-46.3); Red Blood Count 4.34 M/uL (4.20-5.40); White Blood Count 7.28 K/ul (4.8-10.8)
[2023-06-06 08:01] LABS: Albumin Globulin Ratio 1.5 (0.9-2); Albumin Level 4.1 gm/dl (3.4-5.0); BUN Creatinine Ratio 18.2 (10-20); Calcium 8.7 mg/dl (8.6-10.3); Creatinine Clr Calc Pharmacy 56.5 ml/min; Est GFR (African American) 91.4 ml/min; Est GFR (Non-African American) 78.9 ml/min; Globulin 2.7 gm/dl (2.5-4.0); Potassium 3.8 mmol/L (3.5-5.1); Total Protein 6.8 gm/dl (6.0-8.3)
[2023-06-06] MEDS: lamoTRIgine 25 MG TAB PO SCH ×2 (09:12→20:00)
--- NOTE | 2023-06-06 17:52 | Hospitalist Progress Note ---
Date of Service June 06, 2023 Assessment & Plan (1) Hyperthermia: Plan: - resolved felt to be due to exposure -Patient was found to be lethargic and hyperthermic with a max temp of 39.8C this afternoon after being unable to get herself off the ground while doing yard work -The patient denies a fall or other symptoms prior to starting yard work - -CK was WNL - (2) Elevated troponin: Plan: -Initial high sen trop elevated at 236 peaked to 700 Naus come back down -Patient has been asymptomatic and without acute ST segment or T-wave changes - echocardiogram preserved ejection fraction without regional wall motion abnormalities diastolic dysfunction is noted elevated troponin secondary to demand ischemia patient declined any other risk stratification such as stress test or cardiac catheterization at this time we will treat with medical management we will start low-dose aspirin and low-dose beta-mitch check fasting a.m. lipid (3) Anxiety: Plan: -Continue Wellbutrin and sertraline (4) Depression: Plan: -Continue Wellbutrin and Sertraline (5) Acid reflux disease: Plan: -Prn famotidine (6) Chronic constipation: Plan: -No BM today -Will order prn suppositories as requested by patient Plan PT OT evaluation for rehab fitness Admission and Anticipated Discharge Date Admission Date: June 04, 2023 Subjective Patient is pleasant has no complaints has no chest discomfort or shortness of breath patient's daughter arrived from [place] is endorsing request for PT evaluation for returning home safely. Nursing endorses her walking is unstable Physical Exam Physical Exam: Awake and alert Card exam is regular with a systolic murmur Lungs are clear without wheezes or crackles Abdomen NABS soft and nontender Results & Data Results & Data Vital Signs (Past 12 Hours) Vital Signs Temp Pulse Pulse Resp BP Pulse Ox O2 Del Method 06/06/23 16:00 98.2 F 71 18 146/94 H 94 Room Air 06/06/23 12:14 97.7 F 75 18 137/90 95 Room Air 06/06/23 08:00 82 06/06/23 08:10 98.1 F 79 18 122/73 93 Room Air Laboratory Results reviewed trend of troponin now become favorable echocardiogram without regional wall motion abnormalities reviewed CBC reviewed chemistry PG Care Time/CCT Total # of Minutes Spent Total Time Spent with Patient: Total time spent is greater than 50% in coordination of care (as documented) at patient's floor/unit and/or counseling patient: Coding Level of Care Code 25258 SUB INP/OBS CARE MIN Diagnoses Hyperthermia R50.9 Elevated troponin R77.8 Anxiety F41.9 Depression F32.9 Acid reflux disease K21.9 Chronic constipation K59.09
[2023-06-06] MEDS ORDERED: ASPIRIN 81 MG ECTAB PO ONE (17:53)
[2023-06-06] MEDS: METOPROLOL TARTRATE 25 MG TAB PO SCH (20:00)
[2023-06-07 07:37] LABS: Basophils # (auto) 0.04 K/uL (0.00-0.20); Basophils % (auto) 0.6 %; Eosinophils % (auto) 3.1 %; Hematocrit (blood only) 35.5 % (37.0-47.0); Immature Granulocytes # (auto) 0.03 K/uL (0.01-0.20); Immature Granulocytes % (auto) 0.5 %; Lymphocytes # (auto) 1.77 K/uL (1.20-3.40); Lymphocytes % (auto) 27.2 %; Mean Corpuscular Hemoglobin 30.2 pg (25.0-34.0); Mean Corpuscular Hgb Conc 33.8 g/dL (32.0-36.0); Mean Corpuscular Volume 89.2 fL (80.0-100.0); Mean Platelet Volume 10.8 fL (9.4-12.4); Monocytes # (auto) 0.72 K/uL (0.11-0.59); Monocytes % (auto) 11.1 %; Neutrophils # (auto) 3.74 K/uL (1.40-6.50); Neutrophils % (auto) 57.5 %; Platelet Count 158 K/uL (130-400); RDW Coefficient of Variation 14.2 % (11.5-14.5); RDW Standard Deviation 46.1 fL (36.4-46.3); Red Blood Count 3.98 M/uL (4.20-5.40)
[2023-06-07 08:01] LABS: Albumin Globulin Ratio 1.6 (0.9-2); Albumin Level 3.8 gm/dl (3.4-5.0); BUN Creatinine Ratio 16.9 (10-20); Bilirubin,Total 0.8 mg/dl (0.2-1.0); Calcium 8.6 mg/dl (8.6-10.3); Chol HDL Ratio 3.8 (0-5); Creatinine Clr Calc Pharmacy 47.8 ml/min; Est GFR (African American) 79.9 ml/min; Est GFR (Non-African American) 68.9 ml/min; Globulin 2.4 gm/dl (2.5-4.0); Potassium 3.9 mmol/L (3.5-5.1); Total Protein 6.2 gm/dl (6.0-8.3)
[2023-06-07] MEDS: ASPIRIN 81 MG ECTAB PO SCH (08:01)
[2023-06-07] MEDS: lamoTRIgine 25 MG TAB PO SCH ×2 (08:02→20:12)
[2023-06-07] MEDS: METOPROLOL TARTRATE 25 MG TAB PO SCH ×2 (08:02→20:11)
[2023-06-07] MEDS: SERTRALINE HCL 50 MG TABLET PO SCH (08:03)
[2023-06-07] MEDS: oxyBUTYnin chloride 5 MG TAB PO SCH ×3 (08:03→20:12)
[2023-06-07] MEDS: buPROPion SR 100 MG TABCR PO SCH (08:04)
--- NOTE | 2023-06-07 14:36 | Hospitalist Progress Note ---
Date of Service June 07, 2023 Assessment & Plan (1) Hyperthermia: Plan: - resolved felt to be due to exposure -Patient was found to be lethargic and hyperthermic with a max temp of 39.8C day of admit in the afternoon after being unable to get herself off the ground while doing yard work -The patient denies a fall or other symptoms prior to starting yard work -CK was WNL -No infectious symptoms 06/07 (2) Elevated troponin: Plan: -Initial high sen trop elevated at 236 peaked to 700 and downtrended -Patient has been asymptomatic and without acute ST segment or T-wave changes - echocardiogram preserved ejection fraction without regional wall motion abnormalities diastolic dysfunction is noted elevated troponin secondary to demand ischemia patient declined any other risk stratification such as stress test or cardiac catheterization at this time we will treat with medical management Continue aspirin 81 mg daily, metoprolol 12.5 mg p.o. twice daily (consolidate to succinate once dose noted to be stable), and atorvastatin 20 mg (added 06/07 for LDL 129/cholesterol 201) which can be increased to 40 mg as outpatient if tolerating well. Will need outpatient LFTs in 1-2 weeks (3) Anxiety: Plan: -Continue Wellbutrin and sertraline (4) Depression: Plan: -Continue Wellbutrin and Sertraline (5) Acid reflux disease: Plan: -Prn famotidine (6) Chronic constipation: Plan: -No BM today -Will order prn suppositories as requested by patient Plan Case discussed with Center care by case management. Bed likely available 06/08, [employer] insurance Auth pending. Daughter aware. Admission and Anticipated Discharge Date Admission Date: June 04, 2023 Subjective Jennifer is seen at the bedside. Reports she feels "okay ". No questions or concerns at time of bedside visit. Would like to get out of the hospital when able, is aware that she is pending placement and insurance authorization. No other questions at bedside. Denies chest pain, chest pressure, shortness of breath, lightheadedness, dizziness. Denies fever/chills Review of Systems Review of Systems: All systems reviewed & are unremarkable except as noted in Subjective Physical Exam Physical Exam: General: A&Ox3. NAD. Cooperative. HEENT: Atraumatic, normocephalic. Pulm: CTAB A&P. -wheezes, -rales, -rhonchi. Symmetrical chest rise. No increased work of breathing. No respiratory distress. Cardiac: RRR, +sm. Radial pulses intact and symmetrical. Abdominal: Nontender, nondistended, soft. BS present. Results & Data Results & Data Vital Signs (Past 12 Hours) Vital Signs Temp Pulse Pulse Resp BP Pulse Ox O2 Del Method 06/07/23 12:00 36.8 C 60 18 135/73 96 Room Air 06/07/23 10:26 Room Air 06/07/23 08:49 51 L 06/07/23 07:55 36.6 C 88 16 143/112 H 98 Room Air 06/07/23 03:00 37.0 C 70 16 106/65 92 Room Air PG Care Time/CCT Total # of Minutes Spent Total Time Spent with Patient: Total time spent is greater than 50% in coordination of care (as documented) at patient's floor/unit and/or counseling patient: Coding Level of Care Code 05633 SUB INP/OBS CARE 3/50MIN Diagnoses Hyperthermia R50.9 Elevated troponin R77.8 Anxiety F41.9 Depression F32.9 Acid reflux disease K21.9 Chronic constipation K59.09
[2023-06-07] MEDS: bisacodyL 10 MG SUPP PR PRN (20:13)
[2023-06-08] MEDS: oxyBUTYnin chloride 5 MG TAB PO SCH ×3 (08:39→20:03)
[2023-06-08] MEDS: SERTRALINE HCL 50 MG TABLET PO SCH (08:39)
[2023-06-08] MEDS: ASPIRIN 81 MG ECTAB PO SCH (08:41)
[2023-06-08] MEDS: ATORVASTATIN 20 MG TAB PO SCH (08:41)
[2023-06-08] MEDS: buPROPion SR 100 MG TABCR PO SCH (08:41)
[2023-06-08] MEDS: lamoTRIgine 25 MG TAB PO SCH ×2 (08:41→20:03)
[2023-06-08] MEDS: bisacodyL 10 MG SUPP PR PRN (08:45)
[2023-06-08] MEDS: METOPROLOL SUCC 25MG EXT REL TAB PO SCH (09:21)
[2023-06-08] MEDS ORDERED: POLYETHYLENE (MIRALAX) 17 GM PACK PO PRN (10:33)
--- NOTE | 2023-06-08 10:55 | XRay Report ---
XR ankle LT min 3V routine CLINICAL HISTORY: fall, ankle swelling and pain COMPARISON: None FINDINGS: Alignment of the left ankle is anatomic. There is no acute fracture. Talar dome is intact. Small plantar calcaneal spur is present. IMPRESSION: No acute fracture or dislocation within the left ankle. ACT 112: Negative or not required by law. Electronically signed by: Bismark Quinn M.D. 06/08/2023 10:53 AM
[2023-06-08] MEDS: POLYETHYLENE (MIRALAX) 17 GM PACK PO SCH (11:04)
--- NOTE | 2023-06-08 11:06 | Discharge Summary ---
Discharge Summary Date of Service June 08, 2023 Admission HPI Per Admitting Provider Kaur Rand) is an 88 year old female with a PMH significant for osteoporosis, depression, and anxiety who presented to the [facility] ED via EMS on 06/04 after being found down, unresponsive outside, by a bystander. She was noted to be lethargic by EMS and was placed on a NRB and given 600 mL NSS. In the ED the patient was noted to be more responsive to staff. She was noted to be hyperthermic at 39.8C but otherwise stable. Labs were significant for an AG of 13 with bicarb of 19, CK of 153, and initial high sen trop of 236. Chest xray was read as "No acute cardiopulmonary abnormality.". Prior to admission the patient was given 324 mg PO Aspirin, 500 mL of NSS, and ice packs were placed at in the groin and axilla. At the time of the exam the patient was sitting in bed in no acute distress. She states that she remembers everything from earlier today. She was in her normal state of health this am and decided to do some weeding around her ex- husbands driveway. She states that she was unable to pull herself back up off the ground when she was ready and was on the ground for approximately 30 min until the bystander found her. She denies falling, losing consciousness, chest pain, heart palpitations, SOB, cough, recent fever or chills prior to today, abd pain, nausea, vomiting, diarrhea, dysuria, hematuria, melena, and LE swelling. She states that she feels much improved prior to ED arrival and is now cold. We discussed code status, the patient wishes to be a DNR/DNI and for her Daughter/POA (Tana) to make medical decisions for her if she cannot make them herself. Please refer to Dr. Thompson's attestation for any changes to the treatment plan. Principal Dx & Hospital Course #1 = Principal Diagnosis (1) Hyperthermia: (2) Elevated troponin: (3) Anxiety: (4) Depression: -Continue Wellbutrin and Sertraline (5) Acid reflux disease: (6) Chronic constipation: (7) Cellulitis of left leg: Plan Hyperthermia: -resolved; patient was found to be lethargic and hyperthermic with a max temp of 39.8C day of admit after being unable to get herself off the ground while doing yard work -the patient denies a fall or other symptoms prior to starting yard work, however does have abrasions to knees and L ankle -CK was WNL -No infectious symptoms Elevated troponin: -Initial HS trop elevated at 236 peaked to 700 and downtrended -Patient asymptomatic and without acute ST segment or T-wave changes -Echocardiogram preserved EF without regional wall motion abnormalities; diastolic dysfunction is noted -Elevated troponin secondary to demand ischemia patient declined any other risk stratification such as stress test or cardiac catheterization so we will treat with medical management -Continue aspirin 81 mg daily, metoprolol succinate 25mg daily, and atorvastatin 20 mg daily (will need outpatient LFTs in 1-2 weeks) Anxiety: -Continue Wellbutrin and sertraline Depression: -Continue Wellbutrin and Sertraline Acid reflux disease: -Prn famotidine Chronic constipation: -Last BM 06/06 -prn suppositories as requested by patient, also added daily Miralax which can be adjusted as necessary for 1 soft formed BM daily Left ankle cellulitis: -Noted by nursing staff overnight 06/07, today patient notes left lateral ankle tenderness and swelling -XR ankle fortunately without fractures -Treat as cellulitis with cephalexin 500mg q6h x5 days, with wound care at facility Updated Medication List Medication Instructions Recorded Confirmed Type clonazepam 0.5 mg tablet 0.5 mg PO BID 07/25/19 06/04/23 History alendronate 70 mg tablet 70 mg PO WK 12/02/19 06/04/23 History bupropion HCl 100 mg tablet,12 hr 100 mg PO DAILY 12/02/19 06/04/23 History sustained-release lamotrigine 25 mg tablet (Lamictal) See Rx Instructions .Route .COMPLEX 11/15/20 06/04/23 History oxybutynin chloride 5 mg tablet 5 mg PO TID 11/15/20 06/04/23 History ergocalciferol (vitamin D2) 1,250 50,000 unit PO WK 06/04/23 06/04/23 History mcg (50,000 unit) capsule sertraline 25 mg tablet (Zoloft) 25 mg PO DAILY 06/04/23 06/04/23 History aspirin 81 mg tablet,delayed 81 mg PO QAM #30 tabs 06/08/23 Rx release atorvastatin 20 mg tablet 20 mg PO QAM 30 days #30 tabs 06/08/23 Rx cephalexin 500 mg capsule 500 mg PO QID 5 days #20 caps 06/08/23 Rx metoprolol succinate 25 mg 25 mg PO QAM 30 days #30 tabs 06/08/23 Rx tablet,extended release 24 hr Hospital Stay Data Consultations 06/04/23 19:55 ED Decision to Admit Stat Discharge Instructions Given to Patient (Per Discharging Provider) Hyperthermia: -resolved; patient was found to be lethargic and hyperthermic with a max temp of 39.8C day of admit after being unable to get herself off the ground while doing yard work -the patient denies a fall or other symptoms prior to starting yard work, however does have abrasions to knees and L ankle -CK was WNL -No infectious symptoms Elevated troponin: -Initial HS trop elevated at 236 peaked to 700 and downtrended -Patient asymptomatic and without acute ST segment or T-wave changes -Echocardiogram preserved EF without regional wall motion abnormalities; diastolic dysfunction is noted -Elevated troponin secondary to demand ischemia patient declined any other risk stratification such as stress test or cardiac catheterization so we will treat with medical management -Continue aspirin 81 mg daily, metoprolol succinate 25mg daily, and atorvastatin 20 mg daily (will need outpatient LFTs in 1-2 weeks) Anxiety: -Continue Wellbutrin and sertraline Depression: -Continue Wellbutrin and Sertraline Acid reflux disease: -Prn famotidine Chronic constipation: -Last BM 06/06 -prn suppositories as requested by patient, also added daily Miralax which can be adjusted as necessary for 1 soft formed BM daily Left ankle cellulitis: -Noted by nursing staff overnight 06/07, today patient notes left lateral ankle tenderness and swelling -XR ankle fortunately without fractures -Treat as cellulitis with cephalexin 500mg q6h x5 days, with wound care at facility Coding Diagnoses Hyperthermia R50.9 Elevated troponin R77.8 Anxiety F41.9 Depression F32.9 Acid reflux disease K21.9 Chronic constipation K59.09 Cellulitis of left leg L03.116
[2023-06-08] MEDS: cephALEXin 500 MG CAP PO SCH ×3 (13:25→20:02)
--- NOTE | 2023-06-08 14:09 | Hospitalist Progress Note ---
Date of Service June 08, 2023 Assessment & Plan (1) Hyperthermia: (2) Elevated troponin: (3) Anxiety: (4) Depression: Plan: -Continue Wellbutrin and Sertraline (5) Acid reflux disease: Plan: (6) Chronic constipation: (7) Cellulitis of left leg: Plan Hyperthermia: -resolved; patient was found down, unresponsive, dehydrated and hyperthermic with a max temp of 39.8C after being unable to get herself off the ground while doing yard work -required IV fluid resuscitation, now tolerating oral intake well -patient denies a fall or other symptoms prior to starting yard work, however does have abrasions to knees and L ankle -CK was WNL -No infectious symptoms but does have abrasion/mild cellulitis of left lateral ankle Demand ischemia, elevated troponin: -Initial HS trop elevated at 236 peaked to 700 and downtrended -Patient asymptomatic and without acute ST segment or T-wave changes -Echocardiogram preserved EF without regional wall motion abnormalities; diastolic dysfunction is noted -Elevated troponin secondary to demand ischemia patient declined any other risk stratification such as stress test or cardiac catheterization so we will treat with medical management -Continue aspirin 81 mg daily, metoprolol succinate 25mg daily, and atorvastatin 20 mg daily (will need outpatient LFTs in 1-2 weeks) Anxiety, depression: -Continue Wellbutrin and Sertraline Acid reflux disease: -PRN famotidine Chronic constipation: -Last BM today -PRN suppositories as requested by patient, also added daily Miralax which can be adjusted as necessary for 1 soft formed BM daily Left ankle cellulitis: -Noted by nursing staff overnight 06/07, today patient notes left lateral ankle tenderness and swelling -XR ankle fortunately without fractures -Treat as cellulitis with cephalexin 500mg q6h x5 days, with wound care at facility Admission and Anticipated Discharge Date Admission Date: June 04, 2023 Supervising Physician Co-Signing Physician Notes Patient is medically stable for discharge when insurance acceptance for rehab is received. PT and OT services are recommending rehab for this patient, and patient also has left ankle wound that would benefit from medical observation on discharge with wound care. Subjective Patient overall feeling well today but does endorse some pain and swelling in left ankle. Denies chest pain, SOB, nausea. Physical Exam Constitutional: WD/WN, vitals as above Respiratory: normal respiratory effort, lungs clear to auscultation Cardiovascular: RRR, no murmur, no edema Gastrointestinal (Abdomen): normal bowel sounds, soft, nontender, no hepatosplenomegaly Skin: 1cm wound noted to left lateral ankle with surrounding erythema and tenderness, no crepitus Psychiatric: A+Ox3, euthymic affect Results & Data Results & Data Vital Signs (Past 12 Hours) Vital Signs Temp Pulse Resp BP Pulse Ox O2 Del Method 06/08/23 12:11 36.6 C 68 20 140/71 92 Room Air 06/08/23 08:00 36.8 C 65 17 116/74 92 Room Air 06/08/23 02:32 36.6 C 67 18 116/63 93 Room Air PG Care Time/CCT Total # of Minutes Spent Total Time Spent with Patient: Total time spent is greater than 50% in coordination of care (as documented) at patient's floor/unit and/or counseling patient: Coding Level of Care Code 07455 SUB INP/OBS CARE 2/35MIN Diagnoses Hyperthermia R50.9 Elevated troponin R77.8 Anxiety F41.9 Depression F32.9 Acid reflux disease K21.9 Chronic constipation K59.09 Cellulitis of left leg L03.116
--- NOTE | 2023-06-09 08:15 | Hospitalist Progress Note ---
Date of Service June 09, 2023 Assessment & Plan (1) Hyperthermia: (2) Elevated troponin: (3) Anxiety: (4) Depression: (5) Acid reflux disease: Plan: (6) Chronic constipation: (7) Cellulitis of left leg: Plan: Hyperthermia: -resolved; patient was found down and unresponsive by EMS, dehydrated and hyperthermic with a max temp of 39.8C after being unable to get herself off the ground while doing yard work -required IV fluid resuscitation, now tolerating oral intake well -patient denies a fall or other symptoms prior to starting yard work, however does have abrasions/wounds to knees and L ankle, presumably from prolonged downtime -CK was WNL -Does have abrasion/ resolving cellulitis of left lateral ankle Demand ischemia, elevated troponin: -Initial HS trop elevated at 236 peaked to 700 and downtrended -Patient asymptomatic and without acute ST segment or T-wave changes -Echocardiogram preserved EF without regional wall motion abnormalities; diastolic dysfunction is noted -Elevated troponin secondary to demand ischemia, patient declined any other risk stratification such as stress test or cardiac catheterization so we will treat with medical management -Continue aspirin 81 mg daily, metoprolol succinate 25mg daily, and atorvastatin 20 mg daily (will need outpatient LFTs in 1-2 weeks) Anxiety, depression: -Continue Wellbutrin and Sertraline Acid reflux disease: -PRN famotidine Chronic constipation: -Last BM today -PRN suppositories as requested by patient, also added daily Miralax which can be adjusted as necessary for 1 soft formed BM daily -Enema ordered given patient request today Left ankle cellulitis: -Noted by nursing staff overnight 06/07, today patient notes left lateral ankle tenderness and swelling -XR ankle fortunately without fractures -Treating as cellulitis with cephalexin 500mg q6h x5 days, with wound care at facility Ambulatory dysfunction, deconditioning: -Patient's baseline is walking without assistive device when at home, will sometimes use a cane or walker when she leaves the home -Has been working with PT who recommended SNF -Today saw patient unable to go from sitting to standing without 1 person assist, unable to use walker to push herself up to standing, given lives alone this patient would not be safe for home Plan [facility] despite PT and OT recommending rehab, patient's inability to get up from bed by herself, and patient needing wound care for left ankle cellulitis. Peer to Peer number called, no answer, message left, suspect I am unlikely to hear over weekend. Discussed with patient and family, who agree, that given her weakness and deconditioning from her baseline (which is performing all ADLs independently and without assistance), and given no family members live in the area that could help her with her ADLs as she recovers, that she would not be safe for home even with home health services intermittently at this time. Will try to call insurance number again on Sunday to perform [id number]. Admission and Anticipated Discharge Date Admission Date: June 04, 2023 Subjective Feeling more wobbly today, nervous about her abrasions and not having a meaningful BM in several days. Has had a few small BMs but not normal for her. Denies abdominal pain. Per daughter patient is more anxious than usual today. Review of Systems Review of Systems: All systems reviewed & are unremarkable except as noted in Subjective Physical Exam Constitutional: WD/WN, vitals as above Respiratory: normal respiratory effort, lungs clear to auscultation Cardiovascular: RRR, no murmur, no edema Gastrointestinal (Abdomen): normal bowel sounds, soft, nontender, no hepatosplenomegaly Skin: 1cm wound noted to left lateral ankle with surrounding erythema and tenderness, improved from yesterday, no crepitus 0.5cm wound to left dorsal hand, no surrounding erythema, noted granulation tissue Psychiatric: A+Ox3, euthymic affect Results & Data Results & Data Vital Signs (Past 12 Hours) Vital Signs Temp Pulse Pulse Resp BP Pulse Ox O2 Del Method 06/09/23 07:57 36.7 C 69 18 145/85 H 93 Room Air 06/09/23 02:37 36.6 C 62 18 128/68 94 Room Air 06/08/23 23:49 60 06/08/23 22:54 36.6 C 60 18 133/74 94 Room Air PG Care Time/CCT Total # of Minutes Spent Total Time Spent with Patient: Total time spent is greater than 50% in coordination of care (as documented) at patient's floor/unit and/or counseling patient: Coding Level of Care Code 25521 SUB INP/OBS CARE 2/35MIN Diagnoses Hyperthermia R50.9 Elevated troponin R77.8 Anxiety F41.9 Depression F32.9 Acid reflux disease K21.9 Chronic constipation K59.09 Cellulitis of left leg L03.116
[2023-06-09] MEDS: POLYETHYLENE (MIRALAX) 17 GM PACK PO SCH (08:54)
[2023-06-09] MEDS: ASPIRIN 81 MG ECTAB PO SCH (08:55)
[2023-06-09] MEDS: ATORVASTATIN 20 MG TAB PO SCH (08:55)
[2023-06-09] MEDS: oxyBUTYnin chloride 5 MG TAB PO SCH ×3 (08:55→20:05)
[2023-06-09] MEDS: METOPROLOL SUCC 25MG EXT REL TAB PO SCH (08:56)
[2023-06-09] MEDS: cephALEXin 500 MG CAP PO SCH ×4 (08:57→20:05)
[2023-06-09] MEDS: lamoTRIgine 25 MG TAB PO SCH ×2 (08:57→20:05)
[2023-06-09] MEDS: SERTRALINE HCL 50 MG TABLET PO SCH (08:57)
[2023-06-09] MEDS: buPROPion SR 100 MG TABCR PO SCH (09:19)
[2023-06-09] MEDS ORDERED: SOD PHOSPHATE/SOD BIPHOSPHATE ENEMA 132 ML BTL PR STA (14:13)
[2023-06-09] MEDS: bisacodyL 10 MG SUPP PR PRN (18:12)
--- NOTE | 2023-06-10 07:04 | Hospitalist Progress Note ---
Date of Service June 10, 2023 Assessment & Plan (1) Hyperthermia: (2) Elevated troponin: (3) Anxiety: (4) Depression: (5) Acid reflux disease: Plan: (6) Chronic constipation: (7) Cellulitis of left leg: Plan: Hyperthermia, unresponsive: -Resolved; patient was found down and unresponsive by EMS, dehydrated and hyperthermic with a max temp of 39.8C after being unable to get herself off the ground while doing yard work -Required IV fluid resuscitation, now tolerating oral intake well -Patient denies a fall or other symptoms prior to starting yard work, however does have abrasions/wounds to knees and L ankle, presumably from prolonged downtime -CK was WNL -Does have abrasions and resolving cellulitis of left lateral ankle Demand ischemia, elevated troponin: -Initial HS trop elevated at 236 peaked to 700 and downtrended -Patient asymptomatic and without acute ST segment or T-wave changes -Echocardiogram preserved EF without regional wall motion abnormalities; diastolic dysfunction is noted -Elevated troponin secondary to demand ischemia, patient declined any other risk stratification such as stress test or cardiac catheterization so we will treat with medical management -Continue aspirin 81 mg daily, metoprolol succinate 25mg daily, and atorvastatin 20 mg daily (will need outpatient LFTs in 1-2 weeks) Anxiety, depression: -Continue Wellbutrin and Sertraline Acid reflux disease: -PRN famotidine Chronic constipation: -Last BM yesterday -PRN suppositories and Miralax which can be adjusted as necessary for 1 soft formed BM daily Left ankle cellulitis: -Noted by nursing staff overnight 06/07, still with some left lateral ankle tenderness and swelling, improved compared to previous however -XR ankle fortunately without fractures -Treating as cellulitis with cephalexin 500mg q6h x5 days, with wound care at facility on discharge Ambulatory dysfunction, deconditioning: -Patient's baseline is walking without assistive device when at home, will sometimes use a cane or walker when she leaves the home, able to get up and down from bed/chair by herself at baseline -06/09 saw patient unable to go from sitting to standing without 1 person assist, unable to use walker to push herself up to standing, given lives alone this patient would not be safe for home -06/10 PT evaluated patient due to increased fatigue, noted to have unsteady gait and balance deficit, difficulty with getting up from bed and up stairs without assistance, high concern for risk of falls and decline if she returns home Plan Patient's SNF rehab has been denied by [facility] despite PT and OT recommending skilled rehab, patient's inability to get up from bed by herself, balance deficits, and patient needing wound care for multiple wounds from fall prior to admission. Peer to Peer number called, no answer, message left x2, suspect I am unlikely to hear over weekend. Discussed with patient and family, who agree, that given her weakness and deconditioning from her baseline (which is performing all ADLs independently and without assistance), and given no family members or good friends live in the area that could help her with her ADLs as she recovers, that she would not be safe for home even with home health services intermittently at this time. Will try to call insurance number again on Sunday to perform [id number]. Admission and Anticipated Discharge Date Admission Date: June 04, 2023 Subjective Patient is tired today, denies chest pain or SOB, nausea, abdominal pain. Not feeling constipated today. Physical Exam Constitutional: WD/WN, vitals as above Respiratory: normal respiratory effort, lungs clear to auscultation Cardiovascular: RRR, no murmur, no edema Gastrointestinal (Abdomen): normal bowel sounds, soft, nontender, no hepatosplenomegaly Skin: 1cm wound noted to left lateral ankle with improving surrounding erythema, nontender 0.5cm wound to left dorsal hand, no surrounding erythema, dry wound, improved appearance Shallow abrasion to right knee, improved from yesterday Small scab left knee, no surrounding erythema Psychiatric: A+Ox3, euthymic affect Results & Data Results & Data Vital Signs (Past 12 Hours) Vital Signs Temp Pulse Pulse Resp BP Pulse Ox O2 Del Method 06/10/23 02:11 72 06/10/23 02:41 36.7 C 73 18 157/72 H 93 Room Air 06/10/23 02:19 Room Air 06/09/23 23:13 65 06/09/23 23:00 36.9 C 60 18 118/64 93 Room Air 06/09/23 19:16 36.8 C 63 18 103/61 93 Room Air PG Care Time/CCT Total # of Minutes Spent Total Time Spent with Patient: Total time spent is greater than 50% in coordination of care (as documented) at patient's floor/unit and/or counseling patient: Coding Level of Care Code 32312 SUB INP/OBS CARE MIN Diagnoses Hyperthermia R50.9 Elevated troponin R77.8 Anxiety F41.9 Depression F32.9 Acid reflux disease K21.9 Chronic constipation K59.09 Cellulitis of left leg L03.116
[2023-06-10 07:14] LABS: Basophils # (auto) 0.06 K/uL (0.00-0.20); Basophils % (auto) 0.9 %; Eosinophils # (auto) 0.13 K/uL (0.00-0.50); Eosinophils % (auto) 1.9 %; Hematocrit (blood only) 37.2 % (37.0-47.0); Hemoglobin 12.6 g/dl (12.0-16.0); Immature Granulocytes # (auto) 0.05 K/uL (0.01-0.20); Immature Granulocytes % (auto) 0.7 %; Lymphocytes # (auto) 1.55 K/uL (1.20-3.40); Lymphocytes % (auto) 22.4 %; Mean Corpuscular Hgb Conc 33.9 g/dL (32.0-36.0); Mean Corpuscular Volume 88.6 fL (80.0-100.0); Mean Platelet Volume 10.4 fL (9.4-12.4); Monocytes # (auto) 0.83 K/uL (0.11-0.59); Neutrophils # (auto) 4.29 K/uL (1.40-6.50); Neutrophils % (auto) 62.1 %; Platelet Count 176 K/uL (130-400); RDW Coefficient of Variation 14.2 % (11.5-14.5); RDW Standard Deviation 45.4 fL (36.4-46.3); White Blood Count 6.91 K/ul (4.8-10.8)
[2023-06-10 07:38] LABS: BUN Creatinine Ratio 22.1 (10-20); Calcium 9.2 mg/dl (8.6-10.3); Creatinine Clr Calc Pharmacy 47.8 ml/min; Est GFR (African American) 79.9 ml/min; Est GFR (Non-African American) 68.9 ml/min
[2023-06-10] MEDS: POLYETHYLENE (MIRALAX) 17 GM PACK PO SCH (08:20)
[2023-06-10] MEDS: ASPIRIN 81 MG ECTAB PO SCH (08:20)
[2023-06-10] MEDS: SERTRALINE HCL 50 MG TABLET PO SCH (08:20)
[2023-06-10] MEDS: METOPROLOL SUCC 25MG EXT REL TAB PO SCH (08:21)
[2023-06-10] MEDS: lamoTRIgine 25 MG TAB PO SCH ×2 (08:21→20:19)
[2023-06-10] MEDS: cephALEXin 500 MG CAP PO SCH ×4 (08:22→20:20)
[2023-06-10] MEDS: oxyBUTYnin chloride 5 MG TAB PO SCH ×3 (08:22→20:19)
[2023-06-10] MEDS: buPROPion SR 100 MG TABCR PO SCH (08:23)
[2023-06-10] MEDS: ATORVASTATIN 20 MG TAB PO SCH (08:23)
--- NOTE | 2023-06-11 07:59 | Hospitalist Progress Note ---
Date of Service June 11, 2023 Assessment & Plan (1) Hyperthermia: (2) Elevated troponin: (3) Anxiety: (4) Depression: (5) Acid reflux disease: Plan: (6) Chronic constipation: (7) Cellulitis of left leg: Plan: Hyperthermia, unresponsive: -Resolved; patient was found down and unresponsive by EMS, dehydrated and hyperthermic with a max temp of 39.8C after being unable to get herself off the ground while doing yard work -Required IV fluid resuscitation, now tolerating oral intake well -Patient denies a fall or other symptoms prior to starting yard work, however does have abrasions/wounds to knees and L ankle, presumably from prolonged downtime -CK was WNL -Does have abrasions and resolving cellulitis of left lateral ankle Demand ischemia, elevated troponin: -Initial HS trop elevated at 236 peaked to 700 and downtrended -Patient asymptomatic and without acute ST segment or T-wave changes -Echocardiogram preserved EF without regional wall motion abnormalities; diastolic dysfunction is noted -Elevated troponin secondary to demand ischemia, patient declined any other risk stratification such as stress test or cardiac catheterization so we will treat with medical management -Continue aspirin 81 mg daily, metoprolol succinate 25mg daily, and atorvastatin 20 mg daily (will need outpatient LFTs in 1-2 weeks) Anxiety, depression: -Continue Wellbutrin and Sertraline Acid reflux disease: -PRN famotidine Chronic constipation: -Last BM yesterday -PRN suppositories and Miralax which can be adjusted as necessary for 1 soft formed BM daily Left ankle cellulitis: -Noted by nursing staff overnight 06/07, still with some left lateral ankle tenderness and swelling, improved compared to previous however -XR ankle fortunately without fractures -Treating as cellulitis with cephalexin 500mg q6h x5 days, with wound care at facility on discharge Ambulatory dysfunction, deconditioning: -Patient's baseline is walking without assistive device when at home, will sometimes use a cane or walker when she leaves the home, able to get up and down from bed/chair by herself at baseline -06/09 saw patient unable to go from sitting to standing without 1 person assist, unable to use walker to push herself up to standing, given lives alone this patient would not be safe for home -06/10 PT evaluated patient due to increased fatigue, noted to have unsteady gait and balance deficit, difficulty with getting up from bed and up stairs without assistance, high concern for risk of falls and decline if she returns home Plan Patient's SNF rehab has been denied by [employer] despite PT and OT recommending skilled rehab, patient's inability to get up from bed by herself, balance deficits, and patient needing wound care for multiple wounds from fall prior to admission. Peer to Peer number called, no answer, message left x2, suspect I am unlikely to hear over weekend. Discussed with patient and family, who agree, that given her weakness and deconditioning from her baseline (which is performing all ADLs independently and without assistance), and given no family members or good friends live in the area that could help her with her ADLs as she recovers, that she would not be safe for home even with home health services intermittently at this time. Will try to call insurance number again on Sunday to perform [id number]. Admission and Anticipated Discharge Date Admission Date: June 04, 2023 Results & Data Results & Data Vital Signs (Past 12 Hours) Vital Signs Temp Pulse Pulse Resp BP Pulse Ox O2 Del Method 06/10/23 22:03 60 06/11/23 04:17 36.8 C 54 L 20 131/73 92 Room Air 06/11/23 03:48 Room Air 06/10/23 23:26 36.5 C 65 20 155/82 H 92 Room Air 06/10/23 20:30 36.8 C 77 20 148/67 H 92 Room Air PG Care Time/CCT Total # of Minutes Spent Total Time Spent with Patient: Total time spent is greater than 50% in coordination of care (as documented) at patient's floor/unit and/or counseling patient: Coding Diagnoses Hyperthermia R50.9 Elevated troponin R77.8 Anxiety F41.9 Depression F32.9 Acid reflux disease K21.9 Chronic constipation K59.09 Cellulitis of left leg L03.116
[2023-06-11] MEDS: POLYETHYLENE (MIRALAX) 17 GM PACK PO SCH (08:29)
[2023-06-11] MEDS: cephALEXin 500 MG CAP PO SCH (08:29)
[2023-06-11] MEDS: oxyBUTYnin chloride 5 MG TAB PO SCH (08:30)
[2023-06-11] MEDS: buPROPion SR 100 MG TABCR PO SCH (08:31)
[2023-06-11] MEDS: SERTRALINE HCL 50 MG TABLET PO SCH (08:31)
[2023-06-11] MEDS: METOPROLOL SUCC 25MG EXT REL TAB PO SCH (08:32)
[2023-06-11] MEDS: ASPIRIN 81 MG ECTAB PO SCH (08:32)
[2023-06-11] MEDS: lamoTRIgine 25 MG TAB PO SCH (08:33)
[2023-06-11] MEDS: ATORVASTATIN 20 MG TAB PO SCH (08:33)
[2023-06-11] MEDS: bisacodyL 10 MG SUPP PR PRN (08:38)
--- NOTE | 2023-06-11 10:53 | Discharge Summary ---
Discharge Summary Date of Service June 11, 2023 Admission Exam Per Admitting Provider General: In no acute distress, stated age, well-nourished, non-toxic appearing HEENT: Normocephalic, atraumatic, no scleral icterus, pupils around round, symmetrical, and reactive to light, dry mucus membranes, trachea midline, no thyromegaly Chest/Pulm: No respiratory distress, symmetrical chest expansion, clear breath sounds throughout Cardiac: RRR, no murmurs noted Abdomen: Negative for ascites and bruising, normoactive bowel sounds, soft, non- tender to palpation throughout Musculoskeletal: Symmetrical and without signs of acute trauma, upper and lower extremities with full ROM, no atrophy, spasticity, or flaccidity Extremities: Radial, dorsalis pedis, and posterior tibial pulses are intact and symmetrical, no edema noted in the BL LE's Skin: Warm, dry, no rashes , lesions, or scars noted Neuro: Alert and oriented to person, place, month, no focal defects, CN II-XII tested and intact, no tremors noted Psych: No acute distress, calm and cooperative during the exam Principal Dx & Hospital Course #1 = Principal Diagnosis (1) Hyperthermia: (2) Elevated troponin: (3) Anxiety: (4) Depression: (5) Acid reflux disease: (6) Chronic constipation: (7) Cellulitis of left leg: Hyperthermia: -Resolved; patient was found to be lethargic and hyperthermic with a max temp of 39.8C day of admit after being unable to get herself off the ground while doing yard work -The patient denies a fall or other symptoms prior to starting yard work, however does have abrasions to knees and L ankle -CK was WNL -No infectious symptoms Elevated troponin: -Initial HS trop elevated at 236 peaked to 700 and downtrended -Patient asymptomatic and without acute ST segment or T-wave changes -Echocardiogram preserved EF without regional wall motion abnormalities; diastolic dysfunction noted -Elevated troponin secondary to demand ischemia; patient declined any other risk stratification such as stress test or cardiac catheterization so we will treat with medical management -Continue aspirin 81 mg daily, metoprolol succinate 25mg daily, and atorvastatin 20 mg daily (will need outpatient LFTs in 1-2 weeks) Anxiety, depression: -Continue Wellbutrin and Sertraline Acid reflux disease: -PRN famotidine Chronic constipation: -Last BM 06/10, can use Miralax/suppositories/enemas as necessary to have one soft formed BM daily Left ankle cellulitis: -Noted by nursing staff overnight 06/07, today patient notes significant improvement in her left lateral ankle tenderness and swelling -XR ankle fortunately without fractures -Treated as cellulitis with cephalexin 500mg q6h x5 days, to complete at end of day 06/12, with wound care at facility Plan Patient's SNF rehab has been accepted by [employer] after discussion of patient's inability to get up from lying to sitting/standing without at least 1 person assist. For discharge to SNF today. Discharge Exam Constitutional WD/WN, vitals as above Skin Wounds as described above all with improvement in size, no further surrounding erythema to left ankle wound, improved greatly Psychiatric A+Ox3, euthymic affect Updated Medication List Medication Instructions Recorded Confirmed Type alendronate 70 mg tablet 70 mg PO WK 12/02/19 06/04/23 History bupropion HCl 100 mg tablet,12 hr 100 mg PO DAILY 12/02/19 06/04/23 History sustained-release lamotrigine 25 mg tablet (Lamictal) See Rx Instructions .Route .COMPLEX 11/15/20 06/04/23 History oxybutynin chloride 5 mg tablet 5 mg PO TID 11/15/20 06/04/23 History ergocalciferol (vitamin D2) 1,250 50,000 unit PO WK 06/04/23 06/04/23 History mcg (50,000 unit) capsule sertraline 25 mg tablet (Zoloft) 25 mg PO DAILY 06/04/23 06/04/23 History aspirin 81 mg tablet,delayed 81 mg PO QAM #30 tabs 06/08/23 Rx release atorvastatin 20 mg tablet 20 mg PO QAM 30 days #30 tabs 06/08/23 Rx bisacodyl 10 mg rectal suppository 10 mg MO DAILY PRN #0 ea 06/08/23 Rx cephalexin 500 mg capsule 500 mg PO QID 5 days #20 caps 06/08/23 Rx metoprolol succinate 25 mg 25 mg PO QAM 30 days #30 tabs 06/08/23 Rx tablet,extended release 24 hr polyethylene glycol 3350 17 gram 17 g PO DAILY #0 ea 06/08/23 Rx oral powder packet (Miralax) Hospital Stay Data Consultations 06/04/23 19:55 ED Decision to Admit Stat Pending Results Patient Have Any Pending Studies at Discharge: No Discharge Instructions Given to Patient (Per Discharging Provider) Hyperthermia: -resolved; patient was found to be lethargic and hyperthermic with a max temp of 39.8C day of admit after being unable to get herself off the ground while doing yard work -the patient denies a fall or other symptoms prior to starting yard work, however does have abrasions to knees and L ankle -CK was WNL -No infectious symptoms Elevated troponin: -Initial HS trop elevated at 236 peaked to 700 and downtrended -Patient asymptomatic and without acute ST segment or T-wave changes -Echocardiogram preserved EF without regional wall motion abnormalities; diastolic dysfunction is noted -Elevated troponin secondary to demand ischemia patient declined any other risk stratification such as stress test or cardiac catheterization so we will treat with medical management -Continue aspirin 81 mg daily, metoprolol succinate 25mg daily, and atorvastatin 20 mg daily (will need outpatient LFTs in 1-2 weeks) Anxiety: -Continue Wellbutrin and sertraline Depression: -Continue Wellbutrin and Sertraline Acid reflux disease: -Prn famotidine Chronic constipation: -Last BM 06/06 -prn suppositories as requested by patient, also added daily Miralax which can be adjusted as necessary for 1 soft formed BM daily Left ankle cellulitis: -Noted by nursing staff overnight 06/07, today patient notes left lateral ankle tenderness and swelling -XR ankle fortunately without fractures -Treat as cellulitis with cephalexin 500mg q6h x5 days, to complete at end of day 06/12, with wound care at facility Total Time Total Time Spent Total Time Spent (In Minutes): 30 miin Coding Level of Care Code 15421 IN/OBS DISCH 30 MIN/LESS Diagnoses Hyperthermia R50.9 Elevated troponin R77.8 Anxiety F41.9 Depression F32.9 Acid reflux disease K21.9 Chronic constipation K59.09 Cellulitis of left leg L03.116
== END 2023-06-11 12:40 | DRG 864 ==
LOC: ED 16:57 → EDINP 20:24 → SUATTDRO 20:24 → 2E 21:06 → 2N 06-10 02:12